=== PATIENT | male | born 1995 | race Two or more races ===

== ENCOUNTER 2024-09-30 15:32 | Inpatient (IN) | payer MEDICAID, OTHER ==
[~2024-09-30] VITALS: Ht 177.8 cm; Wt 72.2 kg
[2024-09-30 17:05] LABS: Basophils # (auto) 0.1 10 ^3/uL (0-0.2); Basophils % (auto) 0.7 % (0.0-2.0); Eosinophils # (auto) 0.3 10 ^3/uL (0-0.8); Eosinophils % (auto) 3.5 % (0.0-7.0); Hematocrit 40.5 % (41.0-53.0); Hemoglobin 14.1 g/dL (13.5-17.5); Lymphocytes # (auto) 2.7 10 ^3/uL (0.4-5.4); Lymphocytes % (auto) 28.9 % (10.0-50.0); Mean Corpuscular Hemoglobin 29.7 pg (28.0-32.0); Mean Corpuscular Hgb Conc. 34.8 g/dL (32.0-36.0); Mean Corpuscular Volume 85.4 fL (80.0-100.0); Monocytes # (auto) 0.7 10 ^3/uL (0-1.3); Monocytes % (auto) 7.4 % (0.0-12.0); Neutrophils # (auto) 5.6 10 ^3/uL (1.6-8.6); Neutrophils % (auto) 59.5 % (37.0-80.0); Nucleated Red Blood Cells % 0.1 %; Platelet Count (auto) 418 10^3/uL (140-450); Red Blood Cells 4.74 10^6/uL (4.5-5.90); Red Cell Distribution Width 12.8 % (11.8-14.3); White Blood Cell 9.4 10^3/uL (4.4-10.8)
--- NOTE | 2024-09-30 17:11 | DVH ---
Venous Doppler right lower extremity INDICATION: pain swelling TECHNIQUE: Duplex venous sonography was performed with real-time and flow sensitive images submitted for evaluation. FINDINGS: Normal phasic venous flow. Veins are fully compressible. No filling defects. IMPRESSION: 1. No evidence of deep vein thrombosis.
[2024-09-30 17:22] LABS: Alanine Aminotransferase 12 U/L (7-40); Albumin 4.6 g/dL (3.2-4.8); Alkaline Phosphatase 101 U/L (46-116); Anion Gap 5 (5-15); Aspartate Aminotransferase 10 U/L (13-40); BUN/Creatinine Ratio 16.8 (10.0-20.0); Bilirubin, Total 0.3 mg/dL (0.2-1.0); Blood Urea Nitrogen 16 mg/dL (9-23); Carbon Dioxide 30 mmol/L (20-31); Chloride 104 mmol/L (98-107); Glucose 97 mg/dL (74-106); Potassium 4.4 mmol/L (3.5-5.1); Sodium 139 mmol/L (136-145)
[2024-09-30 17:23] LABS: Total Protein 7.6 g/dL (5.7-8.2)
--- NOTE | 2024-09-30 17:29 | ED.PDOC ---
Musculoskeletal HPI Comments PMHx: Schizophrenia, depression PSHx: Denies. Social hx: Pt smokes cigarettes, drinks alcohol, and uses marijuana and meth Meds: Seroquel, Escitalopram Allergies: NKDA Vitals T: 98.1F RR: 18 HR: 82 BP: 121/78 O2: 97% on RA Huerta: HPI: Poor Historian. 29-year-old male presents to the emergency department for evaluation of right foot 3rd and 4th digit wound that he says he guided from walking too much. Patient appears homeless. Denies any other acute symptoms. Patient is neurovascularly intact in the affected extremity. The area of complaint appears infected and erythematous and tender to palpation REVIEW OF SYSTEMS: CONSTITUTIONAL: Denies acute: fever, diaphoresis, chills, generalized weakness. HEAD: Denies acute: headache, photophobia Eyes: Denies acute: Double vision, vision loss, eye pain, eye discharge. EARS: Denies acute: tinnitus, hearing loss, ear discharge, ear pain, THROAT: Denies acute: sore throat, swelling, difficulty swallowing , pain with swallowing, change in voice. NECK: Denies acute: neck pain, neck swelling, stiff neck. HEART: Denies acute : chest pain, palpitations, LUNGS: Denies acute: SOB, wheezing, cough, hemoptysis ABDOMEN: Denies acute: abdominal pain, Nausea, Vomiting, diarrhea, melena , hematemesis, hematochezia SKIN: Denies acute: rash, itchiness. EXTREMITIES: Denies acute: calf pain, numbness, tingling, weakness, denies pain in extremity. Denies acute: Low back pain. Neuro: Denies acute: focal neurological deficit, motor or sensory focal neurological deficit, tremors, seizure like activity, confusion, dizziness, change in mental status, loss of bowel or bladder function, cauda equina like symptoms. : Denies acute: dysuria, hematuria, flank pain, increase in urinary frequency. PSYCH: Denies acute: hallucination, suicidal ideation, homicidal ideation. PHYSICAL EXAM: General: no acute distress, awake and alert. Head: normocephalic, atraumatic. Neck: supple, trachea is midline, no swelling. Throat: Normal phonation. Eyes:, no erythema, no purulent discharge, no proptosis, no icterus. Heart: regular rate, regular rhythm, no significant murmur appreciated. Lungs: no apparent respiratory distress, Able to speak in full sentences. No wheezing, no rhonchi, no crackles. No stridors Clear to auscultation bilaterally. Abdomen: non tender to palpation, non distended, soft, no guarding, no rebound, + bowel sounds. Neuro: Awake, Alert, oriented to name, self, situation, follows commands GCS=15. Speech is normal. Skin: no petechia, no purpura, no cyanosis, non-pale, not jaundice. Lower extremities: --no - Pitting edema no deformity, no focal swelling, no calf TTP. Noted right foot plantar and dorsal aspect of the 4th and 5th metatarsal blisters oozing of purulent content with associated erythema and tenderness to palpation and minimal swelling. Patient is neurovascularly intact in the affected extremity. Motor and sensory are present. Pedal pulses palpable. Makes eye contact. moves all four extremities. Face: no apparent facial droop. Ambulating in the ED independently. Pedal pulses are palpable. Chief Complaint: Lower Extremity Time Seen by MD: 17:21 Primary Care Provider: Evgeny Reviewed Notes: Nurses Notes, Medications, Allergies Information Source: Patient Mode of Arrival: Ambulatory Location: Right Extremity Location: Little Toe, Toe 3, Toe 4 Timing: Weeks Severity: Mild Able to Move Extremity: Yes Bear Weight: Limited Pain: Mild Mechanism: Unknown Circumstances: Unknown Onset of Symptoms: After Trauma Symptoms: Swelling, Pain, Erythema DVT Risk Factors: NONE Last Tetanus: UTD Associated signs and symptoms: Abrasion, Other Past Medical History PAST MEDICAL HISTORY: Depression, Schizophrenia Surgical History: Denies all surgeries Family History Family History: Unknown Social History Smoker: Cigarettes Alcohol: Occasionally Drugs: Marijuana, Methamphetamine Lives In: Other (mission home) Was a procedure done? Was a procedure done?: No Differential Diagnosis EXT Differential Diagnosis: Cellulitis, Deep Vein Thrombosis, Compartment Syndrome, Fracture, Sprain, Contusion, Strain, Septic, Neurovascular injury X-Ray, Labs, Meds, VS Vital Signs Date Time Temp Pulse Resp B/P (MAP) Pulse Ox O2 Delivery O2 Flow Rate FiO2 09/30/24 18:02 95 16 97 Room Air* 0 21 09/30/24 18:01 97.9 88 16 117/66 (83) 96 97.9 09/30/24 16:22 98.1 82 18 121/78 (92) 97 Lab Test 11/25/24 16:40 Range/Units White Blood Count 9.4 4.4-10.8 10^3/uL Red Blood Count 4.74 4.5-5.90 10^6/uL Hemoglobin 14.1 13.5-17.5 g/dL Hematocrit 40.5 L 41.0-53.0 % Mean Corpuscular Volume 85.4 80.0-100.0 fL Mean Corpuscular Hemoglobin 29.7 28.0-32.0 pg Mean Corpuscular Hemoglobin Concent 34.8 32.0-36.0 g/dL Red Cell Distribution Width 12.8 11.8-14.3 % Platelet Count 418 140-450 10^3/uL Mean Platelet Volume 7.0 6.9-10.8 fL Neutrophils (%) (Auto) 59.5 37.0-80.0 % Lymphocytes (%) (Auto) 28.9 10.0-50.0 % Monocytes (%) (Auto) 7.4 0.0-12.0 % Eosinophils (%) (Auto) 3.5 0.0-7.0 % Basophils (%) (Auto) 0.7 0.0-2.0 % Neutrophils # (Auto) 5.6 1.6-8.6 10 ^3/uL Lymphocytes # (Auto) 2.7 0.4-5.4 10 ^3/uL Monocytes # (Auto) 0.7 0-1.3 10 ^3/uL Eosinophils # (Auto) 0.3 0-0.8 10 ^3/uL Basophils # (Auto) 0.1 0-0.2 10 ^3/uL Nucleated Red Blood Cells 0.1 % Erythrocyte Sedimentation Rate 48 H 0-20 mm/hr Sodium Level 139 136-145 mmol/L Potassium Level 4.4 3.5-5.1 mmol/L Chloride Level 104 98-107 mmol/L Carbon Dioxide Level 30 20-31 mmol/L Anion Gap 5 5-15 Blood Urea Nitrogen 16 9-23 mg/dL Creatinine 0.95 0.700-1.30 mg/dL Glomerular Filtration Rate Calc 110 >90 mL/min BUN/Creatinine Ratio 16.8 10.0-20.0 Serum Glucose 97 74-106 mg/dL Lactic Acid Level 1.0 0.4-2.0 mmol/L Calcium Level 10.0 8.7-10.4 mg/dL Total Bilirubin 0.3 0.2-1.0 mg/dL Aspartate Amino Transferase (AST) 10 L 13-40 U/L Alanine Aminotransferase (ALT) 12 7-40 U/L Alkaline Phosphatase 101 46-116 U/L Troponin I High Sensitivity < 3 L </=54 ng/L C-Reactive Protein High Sensitivity 2.62 H <1.0 mg/dL B-Type Natriuretic Peptide 6.81 0-100 pg/mL Total Protein 7.6 5.7-8.2 g/dL Albumin 4.6 3.2-4.8 g/dL Current Medications Medications (Trade) Dose Ordered Sig/Arti Route Start Time Stop Time Status Last Admin Clindamycin Phosphate 50 ml @ 50 mls/hr ONCE ONCE IV 09/30/24 17:45 09/30/24 18:44 DC 09/30/24 18:13 [place] [id number] Ph: [phone] DIAGNOSTIC IMAGING Diagnostic Imaging Report : [id number] Signed PATIENT: GATO HUERTA ACCT: [id number] UNIT: [id number] : 1995 LOC: ER ROOM / BED: / AGE / SEX: 29 / M ADM STATUS: REG ER SERVICE 173 ORDERING PHYSICIAN: JOSE TITUS DO PROCEDURE(s): RFOOT - R FOOT 3 VIEW XRAY REASON: wound/ infection ORDER NUMBER(s): [id number], ACCESSION NUMBER(s): [id number] CLINICAL INDICATION: wound/ infection TECHNIQUE: 3 radiographic views of the right foot were obtained. Comparison: None FINDINGS/IMPRESSION: There is no evidence of acute fracture or dislocation. No erosive bony changes to suggest osteomyelitis. If there is concern for osteomyelitis, MRI should be considered for further evaluation. The visualized joint space is well maintained. The alignment is anatomical. Punctate densities within the soft tissues of the distal which may be external to the patient. Recommend clinical correlation. Mild soft tissue edema over the dorsum of the foot. ATED BY: BRITTANY GARCIA DO DICTATED DATE/TIME: 09/30/241803 SIGNED BY: BRITTANY GARCIA DO SIGNED DATE/TIME: 09/30/241803 CC: [place] [id number] Ph: [phone] DIAGNOSTIC IMAGING Diagnostic Imaging Report : [id number] Signed PATIENT: GATO HUERTA ACCT: [id number] UNIT: [id number] : 1995 LOC: ER ROOM / BED: / AGE / SEX: 29 / M ADM STATUS: REG ER SERVICE 26 ORDERING PHYSICIAN: JOSE TITUS DO PROCEDURE(s): RLDVT - RT Lower DVT REASON: pain swelling ORDER NUMBER(s): [id number], ACCESSION NUMBER(s): [id number] Venous Doppler right lower extremity INDICATION: pain swelling TECHNIQUE: Duplex venous sonography was performed with real-time and flow sensitive images submitted for evaluation. FINDINGS: Normal phasic venous flow. Veins are fully compressible. No filling defects. IMPRESSION: 1. No evidence of deep vein thrombosis. ATED BY: DARIUS KATE MD DICTATED DATE/TIME: 09/30/241708 SIGNED BY: DARIUS KATE MD SIGNED DATE/TIME: 09/30/241708 CC: Time of 1ST Reevaluation: 17:51 Reevaluation 1ST: Unchanged Patient Education/Counseling: Diagnosis, Treatment Family Education/Counseling: No Family Present Comments Patient presented with the above HPI.---foot wound---workup was initiated. patient was found with the above mentioned diagnosis. Patient was given: Antibiotics and fluids Patient ED course and VS have been stabilized. Patient has been reassessed in the ED and remained in a stable condition. Pertinent incidental findings were discussed with the patient and/or family. Patient/family voices understanding and is agreeable with plan. Patient has been observed in the ED adequate length of time to insure improvement/stability. patient was admitted to the medicine team for further evaluation and treatment of their presentation. All the reports of any imaging studies that were ordered by myself were reviewed by myself. Departure 1 Departure Time of Disposition: 18:39 Impression: Primary Impression: Foot infection Additional Impression: Cellulitis Disposition: ADMITTED INPATIENT Condition: Stable Discharged With: Self Critical Care Note Critical Care Time?: No I personally scribed for JOSE TITUS DO ([email or web address]) on 09/30/24 at 17:28. Electronically submitted by Christine Carlson ([facility]). I personally scribed for JOSE TITUS DO ([email or web address]) on 09/30/24 at 18:04. Electronically submitted by Christine Carlson ([facility]). I personally scribed for JOSE TITUS DO ([email or web address]) on 09/30/24 at 19:23. Electronically submitted by Christine Carlson ([facility]). JOSE TITUS DO Sep 30, 2024 17:28
[2024-09-30 17:30] LABS: CRP High Sensitivity 2.62 mg/dL (<1.0)
[2024-09-30 17:38] LABS: Erythrocyte Sedimentation Rate 48 mm/hr (0-20)
[2024-09-30 18:02] VITALS: PULSE 95; RESP 16; O2SAT 97
--- NOTE | 2024-09-30 18:07 | DVH ---
CLINICAL INDICATION: wound/ infection TECHNIQUE: 3 radiographic views of the right foot were obtained. Comparison: None FINDINGS/IMPRESSION: There is no evidence of acute fracture or dislocation. No erosive bony changes to suggest osteomyelit is. If there is concern for osteomyelitis, MRI should be considered for further evaluation. The visualized joint space is well maintained. The alignment is anatomical. Punctate densities within the soft tissues of the distal which may be external to the patient. Recom mend clinical correlation. Mild soft tissue edema over the dorsum of the foot.
[2024-09-30] MEDS: CLINDAMYCIN 900MG IV 50 ML IV ONE (18:13)
[2024-09-30] MEDS ORDERED: ACETAMINOPHEN 325 MG TAB PO PRN (21:30)
[2024-09-30] MEDS ORDERED: TEMAZEPAM 15 MG CAP PO PRN (21:30)
[2024-09-30] MEDS ORDERED: ONDANSETRON HCL 4 MG/2 ML VIAL IV PRN (21:30)
[2024-09-30] MEDS ORDERED: HYDROcodone-ACET 5/325MG TAB PO PRN (21:30)
[2024-10-01 00:22] VITALS: BP 121/81; PULSE 72; RESP 18; TEMP 98.4; O2SAT 97
[2024-10-01] MEDS: levETIRAcetam 500 MG TAB PO SCH (03:02)
[2024-10-01] MEDS: QUEtiapine FUMARATE 100 MG TAB PO SCH (03:02)
[2024-10-01] MEDS: CLINDAMYCIN 600MG IV 50 ML IV SCH (05:33)
[2024-10-01 05:49] VITALS: BP 106/62; PULSE 89; RESP 16; TEMP 97.6; O2SAT 96
--- NOTE | 2024-10-01 05:53 | DVHHP2 ---
History of Present Illness Reason for Visit: Right foot swelling History of Present Illness 29-year-old male presents for evaluation of right foot swelling. Patient reports noticing swelling to his right foot two days ago. He states having tenderness with mild warmth. Denies trauma to the area. No other acute complaints reported. Past Medical History Schizophrenia Past Surgical History Denies Family History Noncontributory Smoke: <1 pack per day ALCOHOL: occassional Drugs: Marijuana, Other (Methamphetamine) Review of Systems Review of Systems Review of systems are currently negative otherwise addressed in HPI. Allergies: Coded Allergies: No Known Drug Allergy (Verified Allergy, Unknown, 10/01/24) Medications Current Medications Medications Dose Ordered Sig/Arti Route Start Time Stop Time Status Last Admin Dose Admin Ceftriaxone Sodium 50 ml @ 100 mls/hr DAILY@09 IV 10/01/24 09:00 Clindamycin Phosphate 50 ml @ 50 mls/hr Q8HR IV 10/01/24 06:00 10/01/24 05:33 50 MLS/HR Quetiapine Fumarate 100 mg BID PO 09/30/24 22:00 10/01/24 03:02 100 MG Levetiracetam 500 mg BID PO 09/30/24 22:00 10/01/24 03:02 500 MG Acetaminophen/ Hydrocodone Bitart 1 tab Q4HP PRN PO 09/30/24 21:30 Temazepam 15 mg QHSP PRN PO 09/30/24 21:30 Ondansetron HCl 4 mg Q4HP PRN IV 09/30/24 21:30 Acetaminophen 650 mg Q6HP PRN PO 09/30/24 21:30 Exam Vital Signs Vital Signs Date Time Temp Pulse Resp B/P (MAP) Pulse Ox O2 Delivery O2 Flow Rate FiO2 10/01/24 00:53 Room Air* 0 21 10/01/24 00:22 98.4 72 18 121/81 (94) 97 98.4 Exam Gen: 29-year-old male in no apparent distress Skin: Warm, dry, normal color and texture, no rash. HEENT: Normocephalic atraumatic, mucous membranes moist and pink. Neck: Cervical and supraclavicular nodes normal without enlargement, trachea is midline, thyroid gland is normal without masses. Pulmonary: Clear to auscultation and percussion bilaterally. Cardiac: Regular rate and rhythm. No murmur Abdomen: Soft, nontender, nondistended, bowel sounds present all 4 quadrants, no guarding, no rigidity, no organomegaly. Extremities: No cyanosis, clubbing, right foot cellulitis Neuro: Cranial nerves II through XII grossly intact, normal affect and speech, no focal motor deficits. Labs/Xrays ORDERING PHYSICIAN: JOSE TITUS DO PROCEDURE(s): RFOOT - R FOOT 3 VIEW XRAY REASON: wound/ infection ORDER NUMBER(s): [id number], ACCESSION NUMBER(s): [id number] CLINICAL INDICATION: wound/ infection TECHNIQUE: 3 radiographic views of the right foot were obtained. Comparison: None FINDINGS/IMPRESSION: There is no evidence of acute fracture or dislocation. No erosive bony changes to suggest osteomyelitis. If there is concern for osteomyelitis, MRI should be considered for further evaluation. The visualized joint space is well maintained. The alignment is anatomical. Punctate densities within the soft tissues of the distal which may be external to the patient. Recommend clinical correlation. Mild soft tissue edema over the dorsum of the foot. Labs Test 09/30/24 16:40 Range/Units White Blood Count 9.4 4.4-10.8 10^3/uL Red Blood Count 4.74 4.5-5.90 10^6/uL Hemoglobin 14.1 13.5-17.5 g/dL Hematocrit 40.5 L 41.0-53.0 % Mean Corpuscular Volume 85.4 80.0-100.0 fL Mean Corpuscular Hemoglobin 29.7 28.0-32.0 pg Mean Corpuscular Hemoglobin Concent 34.8 32.0-36.0 g/dL Red Cell Distribution Width 12.8 11.8-14.3 % Platelet Count 418 140-450 10^3/uL Mean Platelet Volume 7.0 6.9-10.8 fL Neutrophils (%) (Auto) 59.5 37.0-80.0 % Lymphocytes (%) (Auto) 28.9 10.0-50.0 % Monocytes (%) (Auto) 7.4 0.0-12.0 % Eosinophils (%) (Auto) 3.5 0.0-7.0 % Basophils (%) (Auto) 0.7 0.0-2.0 % Neutrophils # (Auto) 5.6 1.6-8.6 10 ^3/uL Lymphocytes # (Auto) 2.7 0.4-5.4 10 ^3/uL Monocytes # (Auto) 0.7 0-1.3 10 ^3/uL Eosinophils # (Auto) 0.3 0-0.8 10 ^3/uL Basophils # (Auto) 0.1 0-0.2 10 ^3/uL Nucleated Red Blood Cells 0.1 % Erythrocyte Sedimentation Rate 48 H 0-20 mm/hr Sodium Level 139 136-145 mmol/L Potassium Level 4.4 3.5-5.1 mmol/L Chloride Level 104 98-107 mmol/L Carbon Dioxide Level 30 20-31 mmol/L Anion Gap 5 5-15 Blood Urea Nitrogen 16 9-23 mg/dL Creatinine 0.95 0.700-1.30 mg/dL Glomerular Filtration Rate Calc 110 >90 mL/min BUN/Creatinine Ratio 16.8 10.0-20.0 Serum Glucose 97 74-106 mg/dL Lactic Acid Level 1.0 0.4-2.0 mmol/L Calcium Level 10.0 8.7-10.4 mg/dL Total Bilirubin 0.3 0.2-1.0 mg/dL Aspartate Amino Transferase (AST) 10 L 13-40 U/L Alanine Aminotransferase (ALT) 12 7-40 U/L Alkaline Phosphatase 101 46-116 U/L Troponin I High Sensitivity < 3 L </=54 ng/L C-Reactive Protein High Sensitivity 2.62 H <1.0 mg/dL B-Type Natriuretic Peptide 6.81 0-100 pg/mL Total Protein 7.6 5.7-8.2 g/dL Albumin 4.6 3.2-4.8 g/dL Assessment/Plan Assessment/Plan Assessment Right foot cellulitis History of schizophrenia Plan Admit the patient to Med surge to the hospitalist Rocephin/clindamycin Blood culture pending Resume home medications Continue treatment per orders. Plan discussed with: Patient My Orders Orders - JORGE PINEDA AGACNP Procedure Category Date Status Time Ceftriaxone 1gm/50ml PHA 10/01/24 In Process D5w (Rocephin) 09:00 Quetiapine Fumarate PHA 09/30/24 In Process Tablet (Seroquel Tab 22:00 Levetiracetam Tablet PHA 09/30/24 In Process (Keppra Tablet) 22:00 Basic Metabolic Panel LAB 10/01/24 Logged 04:00 Admit ADMIT 09/30/24 Transmitted 21:16 Hydrocodone-Acet PHA 09/30/24 In Process 5/325mg Tab ([place] 21:30 Temazepam (Restoril) PHA 09/30/24 In Process 21:30 Ondansetron Hcl PHA 09/30/24 In Process (Zofran) 21:30 Complete Blood Count LAB 10/01/24 Logged 04:00 Condition: Stable MARIELLA 09/30/24 In Process 21:16 Acetaminophen Tablet PHA 09/30/24 In Process (Tylenol Tablet) 21:30 Bedrest With Bathroom MARIELLA 09/30/24 In Process Privileg 21:16 Regular Diet DIET 10/01/24 Transmitted Breakfast Clindamycin 600mg Iv PHA 10/01/24 In Process (Cleocin Iv) 06:00 Date of Service: Sep 30, 2024 Billing Provider: JORGE PINEDA Common Visit Codes: [id number] INP/OBS CARE (MOD) JORGE PINEDA Oct 01, 2024 05:53
[2024-10-01 07:13] LABS: Basophils # (auto) 0 10 ^3/uL (0-0.2); Basophils % (auto) 0.6 % (0.0-2.0); Eosinophils # (auto) 0.3 10 ^3/uL (0-0.8); Eosinophils % (auto) 3.9 % (0.0-7.0); Hematocrit 37.9 % (41.0-53.0); Hemoglobin 13.1 g/dL (13.5-17.5); Lymphocytes # (auto) 1.7 10 ^3/uL (0.4-5.4); Lymphocytes % (auto) 25.6 % (10.0-50.0); Mean Corpuscular Hemoglobin 29.3 pg (28.0-32.0); Mean Corpuscular Hgb Conc. 34.6 g/dL (32.0-36.0); Mean Corpuscular Volume 84.6 fL (80.0-100.0); Monocytes # (auto) 0.5 10 ^3/uL (0-1.3); Monocytes % (auto) 7.2 % (0.0-12.0); Neutrophils % (auto) 62.7 % (37.0-80.0); Platelet Count (auto) 335 10^3/uL (140-450); Red Blood Cells 4.48 10^6/uL (4.5-5.90); White Blood Cell 6.5 10^3/uL (4.4-10.8)
[2024-10-01 07:27] LABS: Anion Gap 8 (5-15); Calcium 9.6 mg/dL (8.7-10.4); Carbon Dioxide 24 mmol/L (20-31); Chloride 109 mmol/L (98-107); Sodium 141 mmol/L (136-145)
[2024-10-01 07:33] LABS: BUN/Creatinine Ratio 13.5 (10.0-20.0); Blood Urea Nitrogen 10 mg/dL (9-23); Glucose 103 mg/dL (74-106)
[2024-10-01 07:41] VITALS: BP 96/52; PULSE 68; RESP 16; TEMP 97.6; O2SAT 91
[2024-10-01 07:47] VITALS: BP 96/52; PULSE 64; PULSE 68; RESP 16; TEMP 97.6; O2SAT 91; O2SAT 96
[2024-10-01] MEDS: cefTRIAXone 1GM/50ML D5W 50 ML IV SCH (09:00)
--- NOTE | 2024-10-01 10:57 | DVHPNRES ---
Progress Note Date Seen: Oct 01, 2024 Resident Creating Document: MYRANDA ROBLES RESIDENT Has the PT tested + for MRSA If YES, has PT been informed?: No Medical Necessity Reason Pt with a Central, PICC or Fol: No Subjective Review of Systems This is a 29-year-old male with a pmhx of schizophrenia and polysubstance abuse who presented to the ED with the complaints of right foot pain for the past 2 weeks. Patient is homeless and has been sleeping wherever he could until recently when he got placed in a [facility] house. Patient reported noticing swelling of his right foot two weeks ago. He denied trauma to the foot or insect bite. He however, noted associated symptoms like fever, nausea and vomiting. Past Medical History:Schizophrenia, Marijuana, Other (Methamphetamine) Past Surgical History: None Family History:Noncontributory Smoke: <1 pack per day.ALCOHOL: occasional, currently unemployed Constitutional: mild fever and chills HEENT: Denies headache, ear pain, ear discharges, conjunctivitis, nasal discharge throat pain Cardiovascular: Denies chest pain, palpitation, orthopnea, PND, or pedal edema Respiratory: Denies shortness of breath, cough cough, sputum production, hemoptysis, GI: Denies abdominal pain, nausea, vomiting, diarrhea, hematemesis, hematochezia, : Denies frequency, urgency, hematuria, Endocrine: Denies unintentional weight gain or weight loss, feeling of hot flashes, Jim: Denies easy bruising, bleeding disorders, epistaxis Musculoskeletal: right food pain and tenderness, red, swelling; left foot is fine Psych: No evidence of depression, brit, suicidal ideation Objective vital signs Vital Sign Date Time Temp Pulse Resp B/P (MAP) Pulse Ox O2 Delivery O2 Flow Rate FiO2 10/01/24 07:41 97.6 68 16 96/52 (67) 91 97.6 10/01/24 00:53 Room Air* 0 21 Total Intake and Output 09/30/24 09/30/24 10/01/24 15:00 23:00 07:00 Intake Total 50 ml 50 ml Balance 50 ml 50 ml medications Current Medications Medications Dose Ordered Sig/Arti Route Start Time Stop Time Status Last Admin Dose Admin Ceftriaxone Sodium 50 ml @ 100 mls/hr DAILY@09 IV 10/01/24 09:00 10/01/24 09:00 100 MLS/HR Clindamycin Phosphate 50 ml @ 50 mls/hr Q8HR IV 10/01/24 06:00 10/01/24 05:33 50 MLS/HR Quetiapine Fumarate 100 mg BID PO 09/30/24 22:00 10/01/24 09:07 100 MG Levetiracetam 500 mg BID PO 09/30/24 22:00 10/01/24 09:06 500 MG Acetaminophen/ Hydrocodone Bitart 1 tab Q4HP PRN PO 09/30/24 21:30 Temazepam 15 mg QHSP PRN PO 09/30/24 21:30 Ondansetron HCl 4 mg Q4HP PRN IV 09/30/24 21:30 Acetaminophen 650 mg Q6HP PRN PO 09/30/24 21:30 Examination General examination- very sleepying HEENT: PEERLA, no acute nasal discharge Chest: S1-S2 audible, rate and rhythm regular, no murmur Lung: CTAB, no wheeze or rhonchi Abdomen: Nondistend, BS+, nontenderness, no organomegaly Musculoskeletal: no acute joint swelling or tenderness Lower extremity:right foot edema, open wound, tender, discharges; Leg foot intact Neurological: cranial nerves intact, no acute dysarthria or dysphagia; Legs pulses present, sensation intact foot Psychiatry-- Normal mood and affect Skin- no acute rash or purpura Examination: NEURO:Normal laboratory and microbiology Laboratory Tests 10/01/24 06:21 Test 10/01/24 06:21 Range/Units Serum Glucose 103 74-106 mg/dL Problem List/Assessment/Plan Problem List/Assessment/Plan Right foot purulent cellulitis --> CT: No definite acute fracture or focal osteopenia or cortical destruction to suggest osteomyelitis. -->Vancomycin per pharmacy --> monitor for any worsening --> Currie prn --> Wound care count Schizophrenia --> quetiapine Polysubstance use --> Marijuana --> Methamphetamine --> Social service consult Code status: Full Goal of care discussed for more than 30 minutes Case and plan discussed with Dr. Driver Plan discussed with: Patient My Orders My Orders Orders - MYRANDA ROBLES Procedure Category Date Status Time Drug Screen LAB 10/01/24 Logged 10:50 Date of Service: Oct 01, 2024 Billing Provider: DARYL MONTES MD Common Visit Codes: [id number] INP/OBS CARE(HIGH) MYRANDA ROBLES RESIDENT Oct 01, 2024 10:57 DARYL MONTES MD Oct 07, 2024 00:13
[2024-10-01 12:06] VITALS: BP 107/64; PULSE 77; RESP 20; TEMP 97.7; O2SAT 98
[2024-10-01] MEDS ORDERED: QUET100T47 PO (15:02)
[2024-10-01] MEDS ORDERED: ESCI1TAB36 PO (15:02)
--- NOTE | 2024-10-01 15:10 | DVH ---
EXAMINATION: CT CT R FOOT WO CONTRAST INDICATION: rule out ostemyelitis COMPARISON: None TECHNIQUE: CT of the right foot was performed without contrast. Volume transverse images were obtaine d reconstructed in multiple planes using bone and soft tissue algorithms. FINDINGS: There is motion artifact limiting evaluation of the right foot particularly the metatarsals. Normal m ineralization and alignment. The joint spaces are preserved. There is no definite acute fracture. No definite focal osteopenia or cortical destruction to suggest osteomyelitis. Well corticated osseous d ensities project inferior to the distal tip of the fibula as well as adjacent to the distal tip of th e medial malleolus. There is subcutaneous edema within the visualized right ankle extending into the right foot. The muscle bundles of the right foot are intact. No soft tissue gas or well-formed fluid collection. The tendons and ligaments are grossly intact although not optimally evaluated by CT. IMPRESSION: 1. Motion artifact limits evaluation of the right foot particularly of the metatarsals. 2. No definite acute fracture or focal osteopenia or cortical destruction to suggest osteomyelitis. 3. Subcutaneous edema in the visualized right ankle extending into the right foot. No well-formed fl uid collection or soft tissue gas. 4. Well corticated osseous densities inferior to the distal tip of the fibula as well as adjacent to the distal tip of the medial malleolus which may be sequelae of remote trauma
[2024-10-01] MEDS ORDERED: VANCOMYCIN PER PHARMACY 0 MG IV SCH (15:15)
[2024-10-01] MEDS: VANCOMYCIN 1.5GM/300ML 300 ML IV ONE (15:30)
[2024-10-01 17:06] VITALS: BP 100/49; PULSE 64; RESP 18; TEMP 97.9; O2SAT 97
[2024-10-01] MEDS: VANCOMYCIN 1GM/200ML PREMIX 200 ML IV SCH (22:58)
[2024-10-02] VITALS (7 sets, daily range): BP systolic 93–124; BP diastolic 51–92; PULSE 61–70; RESP 16–20; TEMP 97.1–98.4; O2SAT 96–98
--- NOTE | 2024-10-02 12:57 | DVHINCON2 ---
Date Seen: Oct 02, 2024 Reason for Consultation Right foot wound History of Present Illness 29-year-old male presents for evaluation of right foot swelling. Patient reports noticing swelling to his right foot two days ago. He states having tenderness with mild warmth. Denies trauma to the area. No other acute com plaints reported. Past Medical History See H&P Past Surgical History See H&P Family History: Patient reports no known family medical history. Allergies: Coded Allergies: Cephalexin (Verified Allergy, Intermediate, 10/01/24) Home Meds Reported Medications Quetiapine Fumerate (QUETIAPINE FUMARATE) 100 Mg Tab, PO 10/01/24 Escitalopram Oxalate (ESCITALOPRAM OXALATE) 10 Mg Tab, 1 TAB PO DAILY 10/01/24 Current Medications Current Medications Medications (Trade) Dose Ordered Sig/Arti Route PRN Reason Start Time Stop Time Status Last Admin Vancomycin HCl 0 ml @ 0 mls/hr UD IV 10/01/24 15:15 Vancomycin HCl 200 ml @ 200 mls/hr Q8H IV 10/02/24 00:00 10/02/24 09:03 Vital Signs Vital Signs Date Time Temp Pulse Resp B/P (MAP) Pulse Ox O2 Delivery O2 Flow Rate FiO2 10/02/24 12:51 98.4 68 124/92 (103) 97 98.4 10/02/24 08:24 16 10/02/24 08:00 Room Air* 0 21 Physical Exam DERMATOLOGIC EXAM: - Skin is dry and cool to the touch dry bilaterally. - Nails 1-5 of the bilateral foot are thickened, discolored, dystrophic, and tender to palpate with subungual debris - Hair loss noted to bilateral feet - superficial scabs and ulcerations to the right foot with erythema VASCULAR EXAM: - DP and PT pulses are palpable bilaterally. - P[place]ER [place] is brisk to all digits. - Feet are cool to touch compared to lower legs bilaterally. NEUROLOGIC EXAM: - Normal light touch sensation to the superficial peroneal, deep peroneal, sural, saphenous, and tibial nerve branches. - Protective sensation is diminished as tested with a 5.07 10g [place] bilaterally. MUSCULOSKELETAL EXAM: - No gross deformities - Muscle strength is 5/5 and active motion is pain-free and symmetrical bilaterally - No pain or crepitation with passive range of motion bilaterally to all major pedal joints Labs/Diagnostic Data Labs Test 10/02/24 06:00 10/01/24 06:21 09/30/24 16:40 Range/Units Creatinine 0.77 0.700-1.30 mg/dL Glomerular Filtration Rate Calc 124 >90 mL/min White Blood Count 6.5 # 4.4-10.8 10^3/uL Red Blood Count 4.48 L 4.5-5.90 10^6/uL Hemoglobin 13.1 L 13.5-17.5 g/dL Hematocrit 37.9 L 41.0-53.0 % Mean Corpuscular Volume 84.6 80.0-100.0 fL Mean Corpuscular Hemoglobin 29.3 28.0-32.0 pg Mean Corpuscular Hemoglobin Concent 34.6 32.0-36.0 g/dL Red Cell Distribution Width 13.0 11.8-14.3 % Platelet Count 335 140-450 10^3/uL Mean Platelet Volume 7.0 6.9-10.8 fL Neutrophils (%) (Auto) 62.7 37.0-80.0 % Lymphocytes (%) (Auto) 25.6 10.0-50.0 % Monocytes (%) (Auto) 7.2 0.0-12.0 % Eosinophils (%) (Auto) 3.9 0.0-7.0 % Basophils (%) (Auto) 0.6 0.0-2.0 % Neutrophils # (Auto) 4.0 1.6-8.6 10 ^3/uL Lymphocytes # (Auto) 1.7 0.4-5.4 10 ^3/uL Monocytes # (Auto) 0.5 0-1.3 10 ^3/uL Eosinophils # (Auto) 0.3 0-0.8 10 ^3/uL Basophils # (Auto) 0 0-0.2 10 ^3/uL Nucleated Red Blood Cells 0.0 % Sodium Level 141 136-145 mmol/L Potassium Level 4.0 3.5-5.1 mmol/L Chloride Level 109 H 98-107 mmol/L Carbon Dioxide Level 24 20-31 mmol/L Anion Gap 8 5-15 Blood Urea Nitrogen 10 9-23 mg/dL BUN/Creatinine Ratio 13.5 10.0-20.0 Serum Glucose 103 74-106 mg/dL Calcium Level 9.6 8.7-10.4 mg/dL Erythrocyte Sedimentation Rate 48 H 0-20 mm/hr Lactic Acid Level 1.0 0.4-2.0 mmol/L Total Bilirubin 0.3 0.2-1.0 mg/dL Aspartate Amino Transferase (AST) 10 L 13-40 U/L Alanine Aminotransferase (ALT) 12 7-40 U/L Alkaline Phosphatase 101 46-116 U/L Troponin I High Sensitivity < 3 L </=54 ng/L C-Reactive Protein High Sensitivity 2.62 H <1.0 mg/dL B-Type Natriuretic Peptide 6.81 0-100 pg/mL Total Protein 7.6 5.7-8.2 g/dL Albumin 4.6 3.2-4.8 g/dL Problems(with codes): (1) Cellulitis (2) Foot infection Plan/Recommendation ASSESSMENT: Patient is a 29 year old who was seen on the floor for a worsening right foot wound PLAN: - The patients chart was reviewed, clinical findings were discussed with the patient, the etiologies of the conditions were discussed in detail, and a treatment plan was agreed to at this time, with both oral and written instructions provided. - reviewed x-ray and CT which did not show any abscess or soft tissue emphysema - appears to be consistent with superficial cellulitis and blistering - recommend patient gets admitted for IV antibiotic treatment - no surgical intervention required at this point - dress with Betadine gauze and Kerlix - have it changed every day - can follow up with me as an outpatient once discharged All questions were answered and concerns addressed to the patient's satisfaction. The patient was given the phone number to the clinic and was told how to make contact with the clinic should any concerns or questions arise. Patient understands that if any questions or concerns arise prior to the next appointment, we should be contacted immediately. FOLLOW-UP: Patient will follow up with me in 1 week for continued wound care Plan discussed with: Patient Date of Service: Oct 02, 2024 Billing Provider: CHEPE PLUNKETT DPM Common Visit Codes: [id number] INP/OBS CARE (MOD) CHEPE PLUNKETT DPM Oct 02, 2024 12:57
[2024-10-02] MEDS ORDERED: VANCOMYCIN 1.25GM/250ML 250 ML IV SCH (17:00)
[2024-10-02] MEDS ORDERED: BACDST PO (17:01)
--- NOTE | 2024-10-02 23:08 | DVHDSRES ---
Discharge Summary Date of Admission Resident Creating Document: MYRANDA ROBLES RESIDENT Sep 30, 2024 at 21:16 Date of Discharge: Oct 02, 2024 Labs/Diagnostic Data: Laboratory Results Test 10/02/24 14:51 10/02/24 06:00 10/01/24 06:21 09/30/24 16:40 Vancomycin Level Trough 8.6 ug/mL (5-10) Creatinine 0.77 mg/dL (0.700-1.30) Glomerular Filtration Rate Calc 124 mL/min (>90) White Blood Count 6.5 10^3/uL (4.4-10.8) Red Blood Count 4.48 10^6/uL (4.5-5.90) Hemoglobin 13.1 g/dL (13.5-17.5) Hematocrit 37.9 % (41.0-53.0) Mean Corpuscular Volume 84.6 fL (80.0-100.0) Mean Corpuscular Hemoglobin 29.3 pg (28.0-32.0) Mean Corpuscular Hemoglobin Concent 34.6 g/dL (32.0-36.0) Red Cell Distribution Width 13.0 % (11.8-14.3) Platelet Count 335 10^3/uL (140-450) Mean Platelet Volume 7.0 fL (6.9-10.8) Neutrophils (%) (Auto) 62.7 % (37.0-80.0) Lymphocytes (%) (Auto) 25.6 % (10.0-50.0) Monocytes (%) (Auto) 7.2 % (0.0-12.0) Eosinophils (%) (Auto) 3.9 % (0.0-7.0) Basophils (%) (Auto) 0.6 % (0.0-2.0) Neutrophils # (Auto) 4.0 10 ^3/uL (1.6-8.6) Lymphocytes # (Auto) 1.7 10 ^3/uL (0.4-5.4) Monocytes # (Auto) 0.5 10 ^3/uL (0-1.3) Eosinophils # (Auto) 0.3 10 ^3/uL (0-0.8) Basophils # (Auto) 0 10 ^3/uL (0-0.2) Nucleated Red Blood Cells 0.0 % Sodium Level 141 mmol/L (136-145) Potassium Level 4.0 mmol/L (3.5-5.1) Chloride Level 109 mmol/L (98-107) Carbon Dioxide Level 24 mmol/L (20-31) Anion Gap 8 (5-15) Blood Urea Nitrogen 10 mg/dL (9-23) BUN/Creatinine Ratio 13.5 (10.0-20.0) Serum Glucose 103 mg/dL (74-106) Calcium Level 9.6 mg/dL (8.7-10.4) Erythrocyte Sedimentation Rate 48 mm/hr (0-20) Lactic Acid Level 1.0 mmol/L (0.4-2.0) Total Bilirubin 0.3 mg/dL (0.2-1.0) Aspartate Amino Transferase (AST) 10 U/L (13-40) Alanine Aminotransferase (ALT) 12 U/L (7-40) Alkaline Phosphatase 101 U/L (46-116) Troponin I High Sensitivity < 3 ng/L (</=54) C-Reactive Protein High Sensitivity 2.62 mg/dL (<1.0) B-Type Natriuretic Peptide 6.81 pg/mL (0-100) Total Protein 7.6 g/dL (5.7-8.2) Albumin 4.6 g/dL (3.2-4.8) Other Laboratory Tests 10/02/24 06:00 10/01/24 06:21 Brief Hx & Hospital Course: This 29-year-old male with a pmhx of schizophrenia and polysubstance abuse presented to the ED with right foot open discharging wound for the past 2 weeks. He denied trauma to the foot or insect bite. He however,reported associated symptoms like fever, nausea and vomiting. Vitals and lab values were grossly unremarkable. Patient does not have DM or immunocompromised. He was managed on Vancomycin and improved. While on admission, he was also seen by the shoe salesman for right foot evaluation. per the shoe salesman, patient is advised to dress the wound with Betadine gauze and Kerlix daily and follow with the shoe salesman in a week for wound evaluation. Examination General examination- wild awake. very cooperative and communicating well. HEENT: PEER[place], no acute nasal discharge Chest: S1-S2 audible, rate and rhythm regular, no murmur Lung: CTAB, no wheeze or rhonchi Abdomen: Nondistend, BS+, nontenderness, no organomegaly Musculoskeletal: no acute joint swelling or tenderness Lower extremity: right foot covered in clean white gauze, No discharge noted; swelling is decrease; Left foot intact Neurological: cranial nerves intact, no acute dysarthria or dysphagia; pedal pulses are present and strong, sensation intact Psychiatry-- Normal mood and affect Skin- no acute rash or purpura Examination: NEURO:Normal Overall, patient is stable for discharge. Will send him home ( [facility]) with Bactrim for 5-7 days until he see the shoe salesman. Consults/Reason for consult Reason for Consultation Right foot wound Operations or Procedures ORDERING PHYSICIAN: JOSE TITUS DO PROCEDURE(s): RLDVT - RT Lower DVT REASON: pain swelling ORDER NUMBER(s): [id number], ACCESSION NUMBER(s): [id number] Venous Doppler right lower extremity INDICATION: pain swelling TECHNIQUE: Duplex venous sonography was performed with real-time and flow sensitive images submitted for evaluation. FINDINGS: Normal phasic venous flow. Veins are fully compressible. No filling defects. IMPRESSION: 1. No evidence of deep vein thrombosis. ATED BY: DARIUS KATE MD DICTATED DATE/TIME: 09/30/24 170 ORDERING PHYSICIAN: JOSE TITUS DO PROCEDURE(s): RFOOT - R FOOT 3 VIEW XRAY REASON: wound/ infection ORDER NUMBER(s): [id number], ACCESSION NUMBER(s): [id number] ORDERING PHYSICIAN: MYRANDA ROBLES PROCEDURE(s): RFTCT - CT R FOOT WO CONTRAST REASON: rule out ostemyelitis ORDER NUMBER(s): [id number], ACCESSION NUMBER(s): [id number] EXAMINATION: CT CT R FOOT WO CONTRAST INDICATION: rule out ostemyelitis COMPARISON: None TECHNIQUE: CT of the right foot was performed without contrast. Volume transverse images were obtained reconstructed in multiple planes using bone and soft tissue algorithms. FINDINGS: There is motion artifact limiting evaluation of the right foot particularly the metatarsals. Normal mineralization and alignment. The joint spaces are preserved. There is no definite acute fracture. No definite focal osteopenia or cortical destruction to suggest osteomyelitis. Well corticated osseous densities project inferior to the distal tip of the fibula as well as adjacent to the distal tip of the medial malleolus. There is subcutaneous edema within the visualized right ankle extending into the right foot. The muscle bundles of the right foot are intact. No soft tissue gas or well-formed fluid collection. The tendons and ligaments are grossly intact although not optimally evaluated by CT. IMPRESSION: 1. Motion artifact limits evaluation of the right foot particularly of the metatarsals. 2. No definite acute fracture or focal osteopenia or cortical destruction to suggest osteomyelitis. 3. Subcutaneous edema in the visualized right ankle extending into the right foot. No well-formed fluid collection or soft tissue gas. 4. Well corticated osseous densities inferior to the distal tip of the fibula as well as adjacent to the distal tip of the medial malleolus which may be sequelae of remote trauma ATED BY: SANGEETHA DE LOS SANTOS MD DICTATED DATE/TIME: 10/01/24 1640 CLINICAL INDICATION: wound/ infection TECHNIQUE: 3 radiographic views of the right foot were obtained. Comparison: None FINDINGS/IMPRESSION: There is no evidence of acute fracture or dislocation. No erosive bony changes to suggest osteomyelitis. If there is concern for osteomyelitis, MRI should be considered for further evaluation. The visualized joint space is well maintained. The alignment is anatomical. Punctate densities within the soft tissues of the distal which may be external to the patient. Recommend clinical correlation. Mild soft tissue edema over the dorsum of the foot. ATED BY: BRITTANY GARCIA DO DICTATED DATE/TIME: 09/30/24 3135 Condition at Discharge: Good Final Diagnosis/Problems List Right foot purulent Cellulitis Schizophrenia polysubstance abuse Discharge Disposition: Home Discharge Instruct/Medications Diet: Regular Activity: No Restrictions, As Tolerated Follow Up/Referral: 7 days at the discharge clinic Medications: Home with bactrim Discharge Statement: "Patient was advised to return to the ER or call 911 if any headaches, dizziness, shortness of breath, chest pain, abdominal pain, bleeding, fevers, or worsening of medical condition. Patient was counseled about treatment plan, medications, possible side effects, patientverbalized understanding. All questions were answered to the best of my ability. This discharge took greater then 30 minutes in planning, reviewing documentation, counseling the patient, and discussing with other team members." ASSESSMENT ASSESSMENT Assessment Cellulitis right foot schizophrenia polysubstance abuse Date of Service: Oct 02, 2024 Billing Provider: DARYL MONTES MD Common Visit Codes: 85884-RLD/OBS DISCH DAY >30min MYRANDA ROBLES RESIDENT Oct 02, 2024 23:08 DARYL MONTES MD Oct 04, 2024 15:54
== END 2024-10-02 18:21 | disposition home or self-care (01) | DRG 383 ==
LOC: ER 15:32 → OVERFLOW 21:16
PROVIDERS: ADMIT Student in an Organized Health Care Education/Training Program; ATTEND Student in an Organized Health Care Education/Training Program
DX: L03.115 Cellulitis of right lower limb (principal); F17.210 Nicotine dependence, cigarettes, uncomplicated; F20.9 Schizophrenia, unspecified; F32.A Depression, unspecified; F19.10 Other psychoactive substance abuse, uncomplicated; Z88.1 Allergy status to other antibiotic agents; Z59.00 Homelessness unspecified; Z56.0 Unemployment, unspecified
CPT/HCPCS: 36415; 73630; 73700; 80048; 80053; 80202; 82565; 83605; 83880; 84484; 85025; 85652; 86141; 93971; G0378; J3490

== ENCOUNTER 2025-01-31 11:02 | Emergency (ER) | payer MEDICAID ==
[~2025-01-31] VITALS: Ht 180.3 cm; Wt 66.0 kg
[~2025-01-31 11:02] MED LIST: BACDST PO; ESCI1TAB36 PO; QUET100T47 PO
--- NOTE | 2025-01-31 11:59 | ED.PDOC ---
Psychiatric HPI Comments 29-year-old male with a history of schizophrenia and homelessness presents with a chief complaint of suicidal ideation. Patient states that he is feeling suicidal and is having auditory hallucinations. Patient denies having a plan at this time. Patient mentions that he was prescribed Zyprexa x 2 year ago and Abilify, but states that he ran out and has not refilled it. Patient is only requesting to have Zyprexa, does not want Abilify. PMHx: Schizophrenia PSHx: None SHx: Alcohol Use, methamphetamine abuse HPI: Poor Historian. REVIEW OF SYSTEMS: CONSTITUTIONAL: Denies acute: fever, diaphoresis, chills, generalized weakness. HEAD: Denies acute: headache, photophobia Eyes: Denies acute: Double vision, vision loss, eye pain, eye discharge. EARS: Denies acute: tinnitus, hearing loss, ear discharge, ear pain, THROAT: Denies acute: sore throat, swelling, difficulty swallowing , pain with swallowing, change in voice. NECK: Denies acute: neck pain, neck swelling, stiff neck. HEART: Denies acute : chest pain, palpitations, LUNGS: Denies acute: SOB, wheezing, cough, hemoptysis ABDOMEN: Denies acute: abdominal pain, Nausea, Vomiting, diarrhea, melena , hematemesis, hematochezia SKIN: Denies acute: rash, redness, lesions, itchiness. EXTREMITIES: Denies acute: calf pain, numbness, tingling, weakness, denies pain in extremity. Denies acute: Low back pain. Neuro: Denies acute: focal neurological deficit, motor or sensory focal neurological deficit, tremors, seizure like activity, confusion, dizziness, change in mental status, loss of bowel or bladder function, cauda equina like symptoms. : Denies acute: dysuria, hematuria, flank pain, increase in urinary frequency. PSYCH: Denies acute: homicidal ideation. PHYSICAL EXAM: General: no acute distress, awake and alert. Head: normocephalic, atraumatic. Neck: supple, trachea is midline, no swelling. Throat: Normal phonation. Eyes:, no erythema, no purulent discharge, no proptosis, no icterus. Heart: regular rate, regular rhythm, no significant murmur appreciated. Lungs: no apparent respiratory distress, Able to speak in full sentences. No wheezing, no rhonchi, no crackles. No stridors Clear to auscultation bilaterally. Abdomen: non tender to palpation, non distended, soft, no guarding, no rebound, + bowel sounds. Neuro: Awake, Alert, oriented to name, self, situation, follows commands GCS=15. Speech is normal. Skin: no petechia, no purpura, no cyanosis, non-pale, not jaundice. Lower extremities: --no - Pitting edema no deformity, no focal swelling, no calf TTP. Makes eye contact. moves all four extremities. Face: no apparent facial droop. Ambulating in the ED independently. ED COURSE: At this time 5:32 p.m. , we noted that the socially responsible investment adviser stated that the patient requested to be placed on a voluntary hold. We tried to reach the social service people but they are not to be found. We will keep the patient in the ED until we find placement for the patient for a voluntary hold. Chief Complaint: Suicidal Time Seen by MD: 11:20 Reviewed Notes: Nurses Notes, Medications, Allergies Information Source: Patient Mode of Arrival: Ambulatory Past Medical History PAST MEDICAL HISTORY: Schizophrenia Surgical History: Denies all surgeries Family History Family History: Reviewed,noncontributory to illness Social History Smoker: Cigarettes Alcohol: Occasionally Drugs: Denies Drug Use Lives In: Other Was a procedure done? Was a procedure done?: No Psych Differential Dx Suicidal Differential Dx: Alcohol Abuse, Anxiety, Bipolar Disorder, Conversion Disorder, Depression, Homicidal, Laceration, Panic Disorder, Personality Disorder, Schizoprenia, Substance Abuse X-Ray, Labs, Meds, VS Vital Signs Date Time Temp Pulse Resp B/P (MAP) Pulse Ox O2 Delivery O2 Flow Rate FiO2 01/31/25 15:27 97.6 87 16 120/76 (91) 95 97.6 01/31/25 15:27 87 16 95 Room Air 01/31/25 11:57 97.1 100 16 115/71 (86) 98 97.1 01/31/25 11:44 Room Air* 0 21 Lab Test 01/31/25 12:40 01/31/25 11:56 Range/Units Urine Opiates Screen Neg NEGATIVE Urine Fentanyl Screen Neg NEGATIVE Urine Barbiturates Screen Neg NEGATIVE Urine Phencyclidine Screen Neg NEGATIVE Urine Amphetamines Screen Neg NEGATIVE Urine Benzodiazepines Screen Neg NEGATIVE Urine Cocaine Screen Neg NEGATIVE Urine Cannabinoids Screen Neg NEGATIVE White Blood Count 5.7 4.4-10.8 10^3/uL Red Blood Count 5.29 4.5-5.90 10^6/uL Hemoglobin 15.4 13.5-17.5 g/dL Hematocrit 45.4 41.0-53.0 % Mean Corpuscular Volume 85.8 80.0-100.0 fL Mean Corpuscular Hemoglobin 29.0 28.0-32.0 pg Mean Corpuscular Hemoglobin Concent 33.8 32.0-36.0 g/dL Red Cell Distribution Width 14.6 H 11.8-14.3 % Platelet Count 288 140-450 10^3/uL Mean Platelet Volume 7.0 6.9-10.8 fL Neutrophils (%) (Auto) 59.4 37.0-80.0 % Lymphocytes (%) (Auto) 30.4 10.0-50.0 % Monocytes (%) (Auto) 3.8 0.0-12.0 % Eosinophils (%) (Auto) 5.0 0.0-7.0 % Basophils (%) (Auto) 1.4 0.0-2.0 % Neutrophils # (Auto) 3.4 1.6-8.6 10 ^3/uL Lymphocytes # (Auto) 1.7 0.4-5.4 10 ^3/uL Monocytes # (Auto) 0.2 0-1.3 10 ^3/uL Eosinophils # (Auto) 0.3 0-0.8 10 ^3/uL Basophils # (Auto) 0.1 0-0.2 10 ^3/uL Nucleated Red Blood Cells 0.1 % Sodium Level 138 136-145 mmol/L Potassium Level 3.8 3.5-5.1 mmol/L Chloride Level 107 98-107 mmol/L Carbon Dioxide Level 24 20-31 mmol/L Anion Gap 7 5-15 Blood Urea Nitrogen 13 9-23 mg/dL Creatinine 0.82 0.700-1.30 mg/dL Glomerular Filtration Rate Calc 121 >90 mL/min BUN/Creatinine Ratio 15.9 10.0-20.0 Serum Glucose 121 H 74-106 mg/dL Calcium Level 9.7 8.7-10.4 mg/dL Total Bilirubin 0.9 0.2-1.0 mg/dL Aspartate Amino Transferase (AST) 19 13-40 U/L Alanine Aminotransferase (ALT) 12 7-40 U/L Alkaline Phosphatase 97 46-116 U/L Total Protein 7.6 5.7-8.2 g/dL Albumin 4.7 3.2-4.8 g/dL Plasma/Serum Blood Alcohol < 3.0 <10 mg/dL Current Medications Medications (Trade) Dose Ordered Sig/Arti Route Start Time Stop Time Status Last Admin Olanzapine (ZyPREXA Tablet) 10 mg STAT ONCE PO 01/31/25 15:00 01/31/25 15:01 DC 01/31/25 15:09 Time of 1ST Reevaluation: 11:50 Reevaluation 1ST: Unchanged Time of 2ND Reevaluation: 12:31 (Patient has been medically cleared. Awaiting both social service and tele psych evaluation.) Time of 3RD Reevaluation: 14:48 (The psychologist evaluated the patient Dr. Turpin. He stated that the patient has history of methamphetamine abuse most recently 10 days ago. He recommends discharging the patient home with Zyprexa 10 mg b.i.d.. ) Patient Education/Counseling: Diagnosis, Treatment Family Education/Counseling: No Family Present Assigned to Dr. Collins. Patient has been medically cleared. Patient is awaiting placement in a psychiatric facility for further evaluation and treatment. Patient has been cooperative and calm during his ED course this far. Comments Patient presented with the above HPI.--psych----workup was initiated. patient was found with the above mentioned diagnosis. the following medications were ordered: please refer to order lists of meds and tests obtained by myself Dr. Titus. Patient ED course and VS have been stabilized. Patient has been reassessed in the ED and remained in a stable condition. Pertinent incidental findings were discussed with the patient and/or family. Patient/family voices understanding and is agreeable with plan. Patient has been observed in the ED adequate length of time to insure improvement/stability. Escalation of care considered: Consideration of escalation to observation or admission Patient was placed on the ED observation awaiting placement in a psychiatric facility for further evaluation. Voluntary hold per patient request. Social service and tele psych were both consulted. All the reports of any imaging studies that were ordered by myself were reviewed by myself. Departure 1 Departure Time of Disposition: 12:30 Impression: Primary Impression: Suicidal ideation Additional Impressions: History of schizophrenia Patient needs psychiatric hold for evaluation Noncompliance with medications History of methamphetamine abuse Disposition: 30 STILL A PATIENT Condition: Stable Additional Instructions: e-Prescriptions Olanzapine (Zyprexa) 10 Mg Tab 10 MG PO BID for 30 Days, #60 TAB Prov: JOSE TITUS DO 01/31/25 Discharged With: Self Critical Care Note Critical Care Time?: No I personally scribed for JOSE TITUS DO ([email or web address]) on 01/31/25 at 11:59. Electronically submitted by Jerad Nelson ([email or web address]). I personally scribed for JOSE TITUS DO ([email or web address]) on 01/31/25 at 12:34. Electronically submitted by Jerad Nelson ([email or web address]). JOSE TITUS DO Jan 31, 2025 11:59
[2025-01-31 12:18] LABS: Basophils # (auto) 0.1 10 ^3/uL (0-0.2); Basophils % (auto) 1.4 % (0.0-2.0); Eosinophils # (auto) 0.3 10 ^3/uL (0-0.8); Hematocrit 45.4 % (41.0-53.0); Hemoglobin 15.4 g/dL (13.5-17.5); Lymphocytes # (auto) 1.7 10 ^3/uL (0.4-5.4); Lymphocytes % (auto) 30.4 % (10.0-50.0); Mean Corpuscular Hgb Conc. 33.8 g/dL (32.0-36.0); Mean Corpuscular Volume 85.8 fL (80.0-100.0); Monocytes # (auto) 0.2 10 ^3/uL (0-1.3); Monocytes % (auto) 3.8 % (0.0-12.0); Neutrophils # (auto) 3.4 10 ^3/uL (1.6-8.6); Neutrophils % (auto) 59.4 % (37.0-80.0); Nucleated Red Blood Cells % 0.1 %; Platelet Count (auto) 288 10^3/uL (140-450); Red Blood Cells 5.29 10^6/uL (4.5-5.90); Red Cell Distribution Width 14.6 % (11.8-14.3); White Blood Cell 5.7 10^3/uL (4.4-10.8)
[2025-01-31 12:28] LABS: Alanine Aminotransferase 12 U/L (7-40); Albumin 4.7 g/dL (3.2-4.8); Alkaline Phosphatase 97 U/L (46-116); Anion Gap 7 (5-15); Aspartate Aminotransferase 19 U/L (13-40); BUN/Creatinine Ratio 15.9 (10.0-20.0); Bilirubin, Total 0.9 mg/dL (0.2-1.0); Blood Urea Nitrogen 13 mg/dL (9-23); Calcium 9.7 mg/dL (8.7-10.4); Carbon Dioxide 24 mmol/L (20-31); Chloride 107 mmol/L (98-107); Potassium 3.8 mmol/L (3.5-5.1); Sodium 138 mmol/L (136-145); Total Protein 7.6 g/dL (5.7-8.2)
[2025-01-31 12:29] LABS: Blood Alcohol < 3.0 mg/dL (<10); Glucose 121 mg/dL (74-106)
--- NOTE | 2025-01-31 13:19 | DVHINCON2 ---
Date of Service if different f: Jan 31, 2025 Time of Service: 12:53 Consultation ([facility]) Consulting Physician: MAMADOU MASON MD Labs Laboratory Tests Test 01/31/25 11:56 White Blood Count 5.7 10^3/uL (4.4-10.8) Red Blood Count 5.29 10^6/uL (4.5-5.90) Hemoglobin 15.4 g/dL (13.5-17.5) Hematocrit 45.4 % (41.0-53.0) Mean Corpuscular Volume 85.8 fL (80.0-100.0) Mean Corpuscular Hemoglobin 29.0 pg (28.0-32.0) Mean Corpuscular Hemoglobin Concent 33.8 g/dL (32.0-36.0) Red Cell Distribution Width 14.6 % (11.8-14.3) Platelet Count 288 10^3/uL (140-450) Mean Platelet Volume 7.0 fL (6.9-10.8) Neutrophils (%) (Auto) 59.4 % (37.0-80.0) Lymphocytes (%) (Auto) 30.4 % (10.0-50.0) Monocytes (%) (Auto) 3.8 % (0.0-12.0) Eosinophils (%) (Auto) 5.0 % (0.0-7.0) Basophils (%) (Auto) 1.4 % (0.0-2.0) Neutrophils # (Auto) 3.4 10 ^3/uL (1.6-8.6) Lymphocytes # (Auto) 1.7 10 ^3/uL (0.4-5.4) Monocytes # (Auto) 0.2 10 ^3/uL (0-1.3) Eosinophils # (Auto) 0.3 10 ^3/uL (0-0.8) Basophils # (Auto) 0.1 10 ^3/uL (0-0.2) Nucleated Red Blood Cells 0.1 % Sodium Level 138 mmol/L (136-145) Potassium Level 3.8 mmol/L (3.5-5.1) Chloride Level 107 mmol/L (98-107) Carbon Dioxide Level 24 mmol/L (20-31) Anion Gap 7 (5-15) Blood Urea Nitrogen 13 mg/dL (9-23) Creatinine 0.82 mg/dL (0.700-1.30) Glomerular Filtration Rate Calc 121 mL/min (>90) BUN/Creatinine Ratio 15.9 (10.0-20.0) Serum Glucose 121 mg/dL (74-106) Calcium Level 9.7 mg/dL (8.7-10.4) Total Bilirubin 0.9 mg/dL (0.2-1.0) Aspartate Amino Transf (AST/SGOT) 19 U/L (13-40) Alanine Aminotransferase (ALT/SGPT) 12 U/L (7-40) Alkaline Phosphatase 97 U/L (46-116) Total Protein 7.6 g/dL (5.7-8.2) Albumin 4.7 g/dL (3.2-4.8) Plasma/Serum Blood Alcohol < 3.0 mg/dL (<10) Appearance: Stated age Psychomotor activity: Calm Behavioral: Cooperative Eye contact: Appropriate Speech: WNL Affect: Appropriate Mood: Depressed Thought processes: Linear/Goal-directed Thought content: Hallucinations Suicidal ideations: Absent Homicidal ideations: Absent Orientation: Person, Place, Time, Situation Memory intact: Recent Intellect: Average Abstractability: WNL Concentration: Adequate Attention: Adequate Judgement: WNL Insight: Fair Vitals Vital Signs Date Time Temp Pulse Resp B/P (MAP) Pulse Ox O2 Delivery O2 Flow Rate FiO2 01/31/25 11:57 97.1 100 16 115/71 (86) 98 97.1 01/31/25 11:44 Room Air* 0 21 Treatment plan discussed: With staff Medication adjusted: Yes Labs ordered: No Psychotherapy provided: No Type: Voluntary History of Present Illness The patient was previously seen by the undersigned on two occasions under and . Reason for Consult : psychiatric evaluation for suicide attempt PER H&P: 29-year-old male presents with a chief complaint of suicidal ideation. Patient states that he is feeling suicidal and is having auditory hallucinations. Patient denies having a plan at this time. Patient mentions that he was prescribed Zyprexa x 2 year ago and Abilify, but states that he ran out and has not refilled it. Patient is only requesting to have Zyprexa, does not want Abilify. Patient is diagnosed Schizophrenic. PSYCHIATRIST HPI: The patient was seen and evaluated at [facility] via telepsychiatry platform. 29 yr old male reported "I'm hearing voices." He reported he last took his zyprexa one month ago. He is unsure what dose he is on, but would like to restart zyprexa as he felt it worked well to keep him feeling better and keep the voices under control. He noted he felt some suicidal ideation earlier in the morning, but reported he no longer feels like harming himself and would really just like to get back on his medications. He denied having homicidal ideation, and denied having visual hallucinations. Past Psychiatric History : Sees psychiatrist Dr Rafael Rodríguez in [place]. Diagnosed with schizophrenia for 6 years. Hospitalized "over a dozen times" last time was four days ago. Past Medical History : seizures in past Current medications: Zyprexa, Keppra 500mg BID Substance use: Denied alcohol use. Denied MJ use. Reported using meth in past. Last use was about 10 days ago. Uses about twice a month. Social History : Raised in [place], lives at [facility] long-term. Never , no children. Graduated [employer] , attended some college at [employer] and [employer]. Works in a warehouse and in restaurant. DIAGNOSIS: SCHIZOPHRENIA; METH USE DISORDER Formulation: This 29 yr old male appears to suffer from schizophrenia and has some auditory hallucinations which likely are due to him not taking his medication and possible frequent use of meth. He may benefit from being on zyprexa. Plan: 1. Safety. The patient is a low risk for self-harm and may be managed as an outpatient. 2. Legal-voluntary. 3. Medications: Start the following. Recommend giving a prescription for thirty days and two refills: Zyprexa 10mg qhs 4. Case discussed with ED Physician, Dr Huerta. 5. Please recontact psychiatry for further follow up or reevaluation. Assessment/Diagnosis/Plan Reviewed: Labs, Medications, Previous Orders MAMADOU MASON MD Jan 31, 2025 13:08
[2025-01-31 14:24] LABS: Amphetamine Screen, Urine Neg (NEGATIVE)
[2025-01-31 14:27] LABS: Barbiturate Scree,Urine Neg (NEGATIVE); Benzodiazephine Screen, Urine Neg (NEGATIVE); Cannabinoid Screen, Urine Neg (NEGATIVE); Cocaine Screen, Urine Neg (NEGATIVE); Opiate Scree,Urine Neg (NEGATIVE); Phencyclidine Screen, Urine Neg (NEGATIVE)
[2025-01-31] MEDS ORDERED: OLAN10TA PO (14:48)
[2025-01-31] MEDS: OLANZapine 5 MG TAB PO ONE (15:09)
[2025-02-01 08:00] VITALS: PULSE 72; RESP 16; O2SAT 98
[2025-02-01 22:53] VITALS: RESP 14
[2025-02-03 00:20] VITALS: PULSE 70; RESP 18; O2SAT 97
[2025-02-03 07:59] VITALS: BP 123/76; TEMP 98.2
[2025-02-03 08:56] VITALS: PULSE 74; RESP 16; O2SAT 96
--- NOTE | 2025-02-03 11:25 | TELE.CONS ---
PSYCHIATRY REASSESSMENT Date: 02/03/25 1110 S: The patient was seen and evaluated at [facility] ED via telepsychiatry platform. 29 yr old male was seen by the undersigned (psychiatrist Cosme Turpin) on 01/31 and diagnosed with schizophrenia and meth use disorder. He was originally going to be discharged but told social work that he was feeling pressure from his auditory hallucinations and didn't feel comfortable leaving, so he was recommended for voluntary transfer to [facility] and he was started on Zyprexa 10mg qhs. However, over the past three days, no beds were available so he didn't transfer to [facility]. Today he reported that his voices are much improved and stated he deals with it with deep breathing. He has been taking Zyprexa 10mg qhs and feels that has reduced his voices significantly to the point that they are very manageable for him. [facility]. He denied having any suicidal or homicidal ideation, plan or intent and denied having visual hallucinations. He is interested in continuing on zyprexa. MSE: alert and oriented speech-regular rate, rhythm and volume Mood-"okay" Affect-euthymic, congruent. Tht process-linear and goal directed Tht Content-Denied having suicidal or homicidal ideation. Denied visual hallucinations. Intermittent auditory hallucinations Insight-fair Judgment-fair Impulse control-fair. Diagnosis: Schizophrenia; Meth use disorder Assessment: This 29 yr old male appears to suffer from schizophrenia and meth use disorder. He may benefit from continuing on zyprexa and refraining from meth use. He does not meet criteria for inpatient hospitalization. Plan: 1. Safety. The patient is a low risk for self harm and may be managed as an outpatient. 2. Legal-voluntary. Follow up with outpatient mental health for medication management and therapy 3. Medications-Recommend giving thirty day prescription and two refills for: Olanzapine 10mg qhs 4. Case discussed with ED physician. 5. Please contact psychiatry if further follow up or reevaluation is desired. Yes COSME TURPIN MD Feb 03, 2025 11:25
[2025-02-03] MEDS ORDERED: OLAN1TAB19 PO (11:43)
== END 2025-02-03 13:06 | disposition home or self-care (01) ==
LOC: ER 11:02
DX: R45.851 Suicidal ideations (principal); F15.10 Other stimulant abuse, uncomplicated; F20.9 Schizophrenia, unspecified
CPT/HCPCS: 36415; 80053; 80307; 80320; 85025

== ENCOUNTER 2025-03-13 10:26 | Emergency (ER) | payer MEDICAID ==
[~2025-03-13] VITALS: Ht 172.7 cm; Wt 72.8 kg
[~2025-03-13 10:26] MED LIST changes: +OLAN10TA PO; +OLAN1TAB19 PO
[2025-03-13 10:29] VITALS: BP 137/80; PULSE 90; RESP 14; TEMP 98.4; O2SAT 96
--- NOTE | 2025-03-13 10:39 | ED.PDOC ---
Psychiatric HPI Comments 29y M who presents to the ED via EMS for chief complaint of mental health. Per EMS, pt was found by bystander on street laying down and EMS was called. EMS arrived on scene and noted pt alert and oriented with noted stable vitals and Accu check of 125 and brought to the ED. Pt in the ED, states he smoked Meth yesterday and is chronic ETOH user. Pt otherwise in the ED, denies suicidal or homicidal ideations. Pt otherwise has noted history of schizophrenia and has been to [facility] in the past for similar complaints. Pt otherwise denies any other symptoms at this time. Chief Complaint: Mental Health Time Seen by MD: 10:35 Primary Care Provider: GASPER Beauchamp Notes: Marine Photographer Notes Information Source: Patient, Emergency Med Personnel Mode of Arrival: EMS Severity: Able to Care for Self Severity of Pain: Moderate Severity of Mental Status: Moderate Severity of Symptoms: Moderate Timing: Hours Duration: Since onset Prehospital treatment: None Presents with: Bizarre Behavior Ingestion: Drug(s) Ingested (methamphetamines) Circumstance: Medical Clearance Current substance abuse: Amphetamines Stressors: Homeless History of: Schizophrenia Quality: None Associated signs and symptoms: Amphetamines Past Medical History PAST MEDICAL HISTORY: Schizophrenia Surgical History: Denies all surgeries Family History Family History: Reviewed,noncontributory to illness Social History Smoker: Cigarettes Alcohol: Occasionally Drugs: Methamphetamine Lives In: Other Constitutional: denies: chills, diaphoresis, fatigue, fever, malaise, sweats, weakness, others EENTM: denies: blurred vision, double vision, ear bleeding, ear discharge, ear drainage, ear pain, ear ringing, eye pain, eye redness, hearing loss, mouth pain, mouth swelling, nasal discharge, nose bleeding, nose congestion, nose pain, photophobia, tearing, throat pain, throat swelling, voice changes, others Respiratory: denies: cough, hemoptysis, orthopnea, SOB at rest, shortness of breath, SOB with excertion, stridor, wheezing, others Cardiovascular: denies: chest pain, dizzy spells, diaphoresis, Dyspnea on exertion, edema, irregular heart beat, left arm pain, lightheadedness, palpit ations, PND, syncope, others Gastrointestinal: denies: abdomen distended, abdominal pain, blood streaked b owels, constipated, diarrhea, dysphagia, difficulty swallowing, hematemesis, melena, nausea, poor appetite, poor fluid intake, rectal bleeding, rectal pain, vomiting, others Genitourinary: denies: burning, dysuria, flank pain, frequency, hematuria, incontinence, penile discharge, penile sore, pain, testicle pain, testicle swelling, urgency, others Neurological: denies: dizziness, fainting, headache, left sided numbness, left sided weakness, numbness, paresthesia, pre-existing deficit, right sided numbness, right sided weakness, seizure, speech problems, tingling, tremors, weakness, others Musculoskeletal: denies: back pain, gout, joint pain, joint swelling, muscle pain, muscle stiffness, neck pain, others Integumetry: denies: bruises, change in color, change in hair/nails, dryness, laceration, lesions, lumps, rash, wounds, others Allergic/Immunocompromised: denies: Difficulty Healing, Frequent Infections, Hives, Itching, others Hematologic/Lymphatic: denies: anemia, blood clots, easy bleeding, easy bruisi ng, swollen glands, others Endocrine: denies: excessive hunger, excessive sweating, excessive thirst, exce ssive urination, flushing, intolerance to cold, intolerance to heat, unexplained weight gain, unexplained weight loss, others Psychiatric: reports: schizophrenia; denies: anxiety, bipolar disorder, depression, hopeless, panic disorder, sleepless, suicidal, others All Other Systems: Reviewed and Negative Physical Exam General Appearance: No Apparent Distress, Other (Seems to be responding to internal stimuli) HEENT: Normal ENT Inspection, Pharynx Normal, TMs Normal Neck: Full Range of Motion, Non-Tender, Normal, Normal Inspection Respiratory: Chest Non-Tender, Lungs Clear, No Accessory Muscle Use, No Respiratory Distress, Normal Breath Sounds Cardiovascular: No Edema, No JVD, No Murmur, No Gallop, Normal Peripheral Pulses, Regular Rate/Rhythm Breast Exam: Deferred Gastrointestinal: No Organomegaly, Non Tender, No Pulsatile Mass, Normal Bowel Sounds, Soft Genitalia: Deferred Pelvic: Deferred Rectal: Deferred Extremities: No calf tenderness, Normal capillary refill, Normal inspection, Normal range of motion, Non-tender, No pedal edema Musculoskeletal : Apperance: Normal Neurologic: Alert, franchise sales representative II-XII nml as Tested, No Motor Deficits, No Sensory Deficits, Other (Flat affect) Cerebellar Function: Normal Reflexes: Normal Skin: Dry, Normal Color, Warm Lymphatic: No Adenopathy Was a procedure done? Was a procedure done?: No Psych Differential Dx Psych. Differential Dx: Schizoprenia OD Differential Dx: Intentional, Substance Abuse Suicidal Differential Dx: Alcohol Abuse Intoxication Differential Dx: Alcohol Withdraw Syndrome, Dehydration, Drug- Induced Psychosis, Electrolyte Imbalance, Substance Abuse Disorder X-Ray, Labs, Meds, VS Vital Signs Date Time Temp Pulse Resp B/P (MAP) Pulse Ox O2 Delivery O2 Flow Rate FiO2 03/13/25 10:29 98.4 90 14 137/80 (99) 96 98.4 Lab Test 03/13/25 10:40 Range/Units White Blood Count 6.6 4.4-10.8 10^3/uL Red Blood Count 4.81 4.5-5.90 10^6/uL Hemoglobin 14.1 13.5-17.5 g/dL Hematocrit 41.1 41.0-53.0 % Mean Corpuscular Volume 85.3 80.0-100.0 fL Mean Corpuscular Hemoglobin 29.4 28.0-32.0 pg Mean Corpuscular Hemoglobin Concent 34.4 32.0-36.0 g/dL Red Cell Distribution Width 14.2 11.8-14.3 % Platelet Count 325 140-450 10^3/uL Mean Platelet Volume 6.8 L 6.9-10.8 fL Neutrophils (%) (Auto) 60.5 37.0-80.0 % Lymphocytes (%) (Auto) 29.1 10.0-50.0 % Monocytes (%) (Auto) 7.4 0.0-12.0 % Eosinophils (%) (Auto) 1.5 0.0-7.0 % Basophils (%) (Auto) 1.5 0.0-2.0 % Neutrophils # (Auto) 4.0 1.6-8.6 10 ^3/uL Lymphocytes # (Auto) 1.9 0.4-5.4 10 ^3/uL Monocytes # (Auto) 0.5 0-1.3 10 ^3/uL Eosinophils # (Auto) 0.1 0-0.8 10 ^3/uL Basophils # (Auto) 0.1 0-0.2 10 ^3/uL Nucleated Red Blood Cells 0.1 % Sodium Level 135 L 136-145 mmol/L Potassium Level 4.1 3.5-5.1 mmol/L Chloride Level 103 98-107 mmol/L Carbon Dioxide Level 23 20-31 mmol/L Anion Gap 9 5-15 Blood Urea Nitrogen 23 9-23 mg/dL Creatinine 1.12 0.700-1.30 mg/dL Glomerular Filtration Rate Calc 91 >90 mL/min BUN/Creatinine Ratio 20.5 H 10.0-20.0 Serum Glucose 108 H 74-106 mg/dL Calcium Level 10.6 H 8.7-10.4 mg/dL Creatine Kinase MB Pending Plasma/Serum Blood Alcohol < 3.0 <10 mg/dL Once the patient arrived we did do a CBC which is within normal limits The chemistry panel is within normal limits The alcohol level is negative The patient was now eloped from the department Patient did not express any suicidal or homicidal ideation Time of 1ST Reevaluation: 11:05 Reevaluation 1ST: Unchanged Patient Education/Counseling: Diagnosis, Treatment, Prognosis Family Education/Counseling: No Family Present Additional Information -Reviewed patient's previous visit(s): - The following tests were ordered, and results were reviewed by me: cbc, ua, bmp, blood alcohol, drug screen, ckmb - Additional information was gathered from interviewing the following independent Historian: ems - I reviewed and agreed with the following test results read by other provider: none - I discussed treatments and results with medical personnel and: patient Comprehensive systems review obtained and negative except for what is stated in the HPI. Departure 1 Departure Time of Disposition: 11:22 Impression: Primary Impression: History of methamphetamine abuse Disposition: 07 LEFT AWOL/ELOPED Condition: Fair Critical Care Note Critical Care Time?: No Stability Stability form required: No Heart Score Heart Score: Heart Score Response (Comments) Value History N/A 0 EKG N/A 0 Age N/A 0 Risk Factors N/A 0 Troponin N/A 0 Total 0 I personally scribed for BERNABE MTZ MD ([email or web address]) on 03/13/25 at 10:39. Electronically submitted by Liu Solano ([email or web address]). BERNABE MTZ MD March 13, 2025 10:39
[2025-03-13 10:50] LABS: Basophils # (auto) 0.1 10 ^3/uL (0-0.2); Basophils % (auto) 1.5 % (0.0-2.0); Eosinophils # (auto) 0.1 10 ^3/uL (0-0.8); Eosinophils % (auto) 1.5 % (0.0-7.0); Hematocrit 41.1 % (41.0-53.0); Hemoglobin 14.1 g/dL (13.5-17.5); Lymphocytes # (auto) 1.9 10 ^3/uL (0.4-5.4); Lymphocytes % (auto) 29.1 % (10.0-50.0); Mean Corpuscular Hemoglobin 29.4 pg (28.0-32.0); Mean Corpuscular Hgb Conc. 34.4 g/dL (32.0-36.0); Mean Corpuscular Volume 85.3 fL (80.0-100.0); Monocytes # (auto) 0.5 10 ^3/uL (0-1.3); Monocytes % (auto) 7.4 % (0.0-12.0); Neutrophils % (auto) 60.5 % (37.0-80.0); Nucleated Red Blood Cells % 0.1 %; Platelet Count (auto) 325 10^3/uL (140-450); Red Blood Cells 4.81 10^6/uL (4.5-5.90); Red Cell Distribution Width 14.2 % (11.8-14.3); White Blood Cell 6.6 10^3/uL (4.4-10.8)
[2025-03-13] MEDS: SODIUM CHLORIDE 0.9% 1,000 ML IV ONE (10:55)
[2025-03-13 10:59] LABS: Chloride 103 mmol/L (98-107); Potassium 4.1 mmol/L (3.5-5.1)
[2025-03-13 11:00] LABS: Anion Gap 9 (5-15); Carbon Dioxide 23 mmol/L (20-31)
[2025-03-13 11:03] LABS: Calcium 10.6 mg/dL (8.7-10.4); Sodium 135 mmol/L (136-145)
[2025-03-13 11:05] LABS: BUN/Creatinine Ratio 20.5 (10.0-20.0)
[2025-03-13 11:08] LABS: Blood Urea Nitrogen 23 mg/dL (9-23); Glucose 108 mg/dL (74-106)
[2025-03-13 11:09] LABS: Blood Alcohol < 3.0 mg/dL (<10)
== END 2025-03-13 10:56 | disposition left against medical advice (07) ==
LOC: ER 10:26 → EDBD 10:26 → ER 10:56
DX: F15.10 Other stimulant abuse, uncomplicated (principal); F17.210 Nicotine dependence, cigarettes, uncomplicated; F20.9 Schizophrenia, unspecified; Z59.00 Homelessness unspecified
CPT/HCPCS: 36415; 80048; 80320; 82553; 85025

== ENCOUNTER 2025-03-14 02:08 | Emergency (ER) | payer MEDICAID ==
[~2025-03-14] VITALS: Ht 180.3 cm; Wt 66.6 kg
[2025-03-14 04:05] LABS: Basophils # (auto) 0.1 10 ^3/uL (0-0.2); Basophils % (auto) 1.4 % (0.0-2.0); Eosinophils # (auto) 0.2 10 ^3/uL (0-0.8); Eosinophils % (auto) 4.7 % (0.0-7.0); Hematocrit 42.4 % (41.0-53.0); Hemoglobin 14.7 g/dL (13.5-17.5); Lymphocytes % (auto) 39.3 % (10.0-50.0); Mean Corpuscular Hemoglobin 29.8 pg (28.0-32.0); Mean Corpuscular Hgb Conc. 34.7 g/dL (32.0-36.0); Mean Corpuscular Volume 85.9 fL (80.0-100.0); Monocytes # (auto) 0.4 10 ^3/uL (0-1.3); Monocytes % (auto) 7.2 % (0.0-12.0); Neutrophils # (auto) 2.5 10 ^3/uL (1.6-8.6); Neutrophils % (auto) 47.4 % (37.0-80.0); Nucleated Red Blood Cells % 0.3 %; Platelet Count (auto) 326 10^3/uL (140-450); Red Blood Cells 4.94 10^6/uL (4.5-5.90); Red Cell Distribution Width 14.1 % (11.8-14.3); White Blood Cell 5.2 10^3/uL (4.4-10.8)
[2025-03-14 04:17] LABS: Alanine Aminotransferase 19 U/L (7-40); Alkaline Phosphatase 106 U/L (46-116); Anion Gap 7 (5-15); Aspartate Aminotransferase 26 U/L (13-40); BUN/Creatinine Ratio 23.9 (10.0-20.0); Blood Urea Nitrogen 22 mg/dL (9-23); Carbon Dioxide 26 mmol/L (20-31); Chloride 104 mmol/L (98-107); Glucose 93 mg/dL (74-106); Potassium 4.5 mmol/L (3.5-5.1); Sodium 137 mmol/L (136-145)
[2025-03-14 04:18] LABS: Albumin 5.1 g/dL (3.2-4.8); Blood Alcohol < 3.0 mg/dL (<10); Calcium 10.6 mg/dL (8.7-10.4); Total Protein 8.5 g/dL (5.7-8.2)
[2025-03-14 04:33] LABS: Bilirubin, Total 1.2 mg/dL (0.2-1.0)
--- NOTE | 2025-03-14 06:42 | ED.PDOC ---
Psychiatric HPI Comments 29 y/o M, RAJIV, presents to the ED for CC of mental health. EMS reports, patient is currently homeless and has been unable to find adequate recourses for his mental health. Patient relays, that he is currently having a hard time finding resources and is struggling with his mental health as a result. Patient relays, having suicidal ideation and auditory hallucinations commanding him to hurt himself. Patient endorses, drinking ETOH and using illicit street drugs x2days ago. Patient denies homicidal ideation or visual hallucinations. No other symptoms or modifying factors present at this time. Chief Complaint: Mental Health Time Seen by MD: 06:10 Primary Care Provider: david Reviewed Notes: Nurses Notes, Growth Media Mixer Mushroom Notes, Medications, Allergies Information Source: Patient Mode of Arrival: Ambulatory Severity: Unable to Care for Self Severity of Pain: None Severity of Mental Status: Moderate Severity of Symptoms: Moderate Timing: Hours Duration: Since onset Prehospital treatment: None Presents with: Suicidal Ideation Ingestion: None Circumstance: None Current substance abuse: ETOH, Amphetamines Stressors: None History of: Schizophrenia Quality: None Associated signs and symptoms: Hopeless, ETOH, Amphetamines Past Medical History PAST MEDICAL HISTORY: Schizophrenia Surgical History: Denies all surgeries Family History Family History: Reviewed,noncontributory to illness Social History Smoker: Cigarettes Alcohol: Occasionally Drugs: Methamphetamine Lives In: Other Constitutional: denies: chills, diaphoresis, fatigue, fever, malaise, sweats, weakness, others EENTM: denies: blurred vision, double vision, ear bleeding, ear discharge, ear drainage, ear pain, ear ringing, eye pain, eye redness, hearing loss, mouth pain, mouth swelling, nasal discharge, nose bleeding, nose congestion, nose pain, photophobia, tearing, throat pain, throat swelling, voice changes, others Respiratory: denies: cough, hemoptysis, orthopnea, SOB at rest, shortness of breath, SOB with excertion, stridor, wheezing, others Cardiovascular: denies: chest pain, dizzy spells, diaphoresis, Dyspnea on exertion, edema, irregular heart beat, left arm pain, lightheadedness, palpitations, PND, syncope, others Gastrointestinal: denies: abdomen distended, abdominal pain, blood streaked bowels, constipated, diarrhea, dysphagia, difficulty swallowing, hematemesis, melena, nausea, poor appetite, poor fluid intake, rectal bleeding, rectal pain, vomiting, others Genitourinary: denies: burning, dysuria, flank pain, frequency, hematuria, incontinence, penile discharge, penile sore, pain, testicle pain, testicle swelling, urgency, others Neurological: denies: dizziness, fainting, headache, left sided numbness, left sided weakness, numbness, paresthesia, pre-existing deficit, right sided numbness, right sided weakness, seizure, speech problems, tingling, tremors, weakness, others Musculoskeletal: denies: back pain, gout, joint pain, joint swelling, muscle pa in, muscle stiffness, neck pain, others Integumetry: denies: bruises, change in color, change in hair/nails, dryness, laceration, lesions, lumps, rash, wounds, others Allergic/Immunocompromised: denies: Difficulty Healing, Frequent Infections, Hives, Itching, others Hematologic/Lymphatic: denies: anemia, blood clots, easy bleeding, easy bruising, swollen glands, others Endocrine: denies: excessive hunger, excessive sweating, excessive thirst, excessive urination, flushing, intolerance to cold, intolerance to heat, unexplained weight gain, unexplained weight loss, others Psychiatric: reports: suicidal; denies: anxiety, bipolar disorder, depression, hopeless, panic disorder, schizophrenia, sleepless, others All Other Systems: Reviewed and Negative Physical Exam General Appearance: Moderate Distress HEENT: Normal ENT Inspection, Pharynx Normal, TMs Normal Neck: Full Range of Motion, Non-Tender, Normal, Normal Inspection Respiratory: Chest Non-Tender, Lungs Clear, No Accessory Muscle Use, No Respiratory Distress, Normal Breath Sounds Cardiovascular: No Edema, No JVD, No Murmur, No Gallop, Normal Peripheral Pulses, Regular Rate/Rhythm Breast Exam: Deferred Gastrointestinal: No Organomegaly, Non Tender, No Pulsatile Mass, Normal Bowel Sounds, Soft Genitalia: Deferred Pelvic: Deferred Rectal: Deferred Extremities: No calf tenderness, Normal capillary refill, Normal inspection, Normal range of motion, Non-tender, No pedal edema Musculoskeletal : Apperance: Normal Neurologic: Alert, fry cook II-XII nml as Tested, No Motor Deficits, Normal Affect, Normal Mood, No Sensory Deficits Cerebellar Function: Normal Reflexes: Normal Skin: Dry, Normal Color, Warm Peripheral Pulses: 3+ Radial (R), 3+ Radial (L) Lymphatic: No Adenopathy Was a procedure done? Was a procedure done?: No Psych Differential Dx Psych. Differential Dx: Hopeless, Schizoprenia, Suicidal X-Ray, Labs, Meds, VS Vital Signs Date Time Temp Pulse Resp B/P (MAP) Pulse Ox O2 Delivery O2 Flow Rate FiO2 03/14/25 03:00 98.3 60 20 109/67 (81) 100 98.3 Lab Test 03/14/25 07:51 03/14/25 03:35 Range/Units Urine Color Yellow Yellow Urine Clarity Turbid H Clear Urine pH 5.5 5.0-9.0 Urine Specific Jarrell 1.035 1.001-1.035 Urine Protein Trace H Negative Urine Ketones Trace Negative Urine Blood 1+ H Negative /uL Urine Nitrite Negative Negative Urine Bilirubin Negative Negative Urine Urobilinogen Normal Negative mg/dL Urine Leukocyte Esterase 1+ Negative /uL Urine RBC 9 0 - 3 /hpf Urine Microscopic WBC 9 H 0-3 /HPF Urine Squamous Epithelial Cells Few <5 /hpf Urine Bacteria None seen None Seen /hpf Urine Mucus Few None Seen Urine Glucose Normal Normal mg/dL Urine Opiates Screen Neg NEGATIVE Urine Fentanyl Screen Neg NEGATIVE Urine Barbiturates Screen Neg NEGATIVE Urine Phencyclidine Screen Neg NEGATIVE Urine Amphetamines Screen Pos NEGATIVE Urine Benzodiazepines Screen Neg NEGATIVE Urine Cocaine Screen Neg NEGATIVE Urine Cannabinoids Screen Neg NEGATIVE White Blood Count 5.2 4.4-10.8 10^3/uL Red Blood Count 4.94 4.5-5.90 10^6/uL Hemoglobin 14.7 13.5-17.5 g/dL Hematocrit 42.4 41.0-53.0 % Mean Corpuscular Volume 85.9 80.0-100.0 fL Mean Corpuscular Hemoglobin 29.8 28.0-32.0 pg Mean Corpuscular Hemoglobin Concent 34.7 32.0-36.0 g/dL Red Cell Distribution Width 14.1 11.8-14.3 % Platelet Count 326 140-450 10^3/uL Mean Platelet Volume 6.8 L 6.9-10.8 fL Neutrophils (%) (Auto) 47.4 37.0-80.0 % Lymphocytes (%) (Auto) 39.3 10.0-50.0 % Monocytes (%) (Auto) 7.2 0.0-12.0 % Eosinophils (%) (Auto) 4.7 0.0-7.0 % Basophils (%) (Auto) 1.4 0.0-2.0 % Neutrophils # (Auto) 2.5 1.6-8.6 10 ^3/uL Lymphocytes # (Auto) 2.0 0.4-5.4 10 ^3/uL Monocytes # (Auto) 0.4 0-1.3 10 ^3/uL Eosinophils # (Auto) 0.2 0-0.8 10 ^3/uL Basophils # (Auto) 0.1 0-0.2 10 ^3/uL Nucleated Red Blood Cells 0.3 % Sodium Level 137 136-145 mmol/L Potassium Level 4.5 3.5-5.1 mmol/L Chloride Level 104 98-107 mmol/L Carbon Dioxide Level 26 20-31 mmol/L Anion Gap 7 5-15 Blood Urea Nitrogen 22 9-23 mg/dL Creatinine 0.92 0.700-1.30 mg/dL Glomerular Filtration Rate Calc 115 >90 mL/min BUN/Creatinine Ratio 23.9 H 10.0-20.0 Serum Glucose 93 74-106 mg/dL Calcium Level 10.6 H 8.7-10.4 mg/dL Total Bilirubin 1.2 H 0.2-1.0 mg/dL Aspartate Amino Transferase (AST) 26 13-40 U/L Alanine Aminotransferase (ALT) 19 7-40 U/L Alkaline Phosphatase 106 46-116 U/L Total Protein 8.5 H 5.7-8.2 g/dL Albumin 5.1 H 3.2-4.8 g/dL Plasma/Serum Blood Alcohol < 3.0 <10 mg/dL Patient alert. History of psychiatric illness. Complaining of suicidal ideation. Vitals stable. Ambulating. Reviewed his previous visit. Medically cleared. Psychiatric evaluation. Time of 1ST Reevaluation: 06:40 Reevaluation 1ST: Unchanged Patient Education/Counseling: Diagnosis, Treatment Family Education/Counseling: No Family Present Departure 1 Departure Time of Disposition: 08:25 Impression: Primary Impression: Suicidal ideation Additional Impression: History of schizophrenia Disposition: 30 STILL A PATIENT Condition: Good Critical Care Note Critical Care Time?: No Stability Stability form required: No Heart Score Heart Score: Heart Score Response (Comments) Value History N/A 0 EKG N/A 0 Age N/A 0 Risk Factors N/A 0 Troponin N/A 0 Total 0 I personally scribed for JIE LEON MD ([email or web address]) on 03/14/25 at 06:42. Electronically submitted by Romy Patricia ([email or web address]). JIE LEON MD March 14, 2025 06:42
[2025-03-14 07:52] LABS: Urine Bacteria None Seen /hpf (None Seen)
[2025-03-14 08:00] VITALS: PULSE 71; RESP 16; O2SAT 98
[2025-03-14 08:11] LABS: Amphetamine Screen, Urine Pos (NEGATIVE); Barbiturate Scree,Urine Neg (NEGATIVE); Benzodiazephine Screen, Urine Neg (NEGATIVE); Cannabinoid Screen, Urine Neg (NEGATIVE); Cocaine Screen, Urine Neg (NEGATIVE); Opiate Scree,Urine Neg (NEGATIVE); Phencyclidine Screen, Urine Neg (NEGATIVE)
[2025-03-14 08:13] LABS: Urine Blood 1+ /uL (Negative); Urine Clarity Turbid (Clear); Urine Color Yellow (Yellow); Urine Mucus FEW (None Seen); Urine Protein, UAD TRACE (Negative); Urine Specific Gravity 1.035 (1.001-1.035); Urine Squamous Epithelial Cell FEW /hpf (<5); Urine Urobilinogen Normal (Negative); Urine WBC 9 /HPF (0-3); Urine pH 5.5 (5.0-9.0)
[2025-03-14 19:42] VITALS: PULSE 75; RESP 18; O2SAT 98
--- NOTE | 2025-03-14 23:17 | DVHINCON2 ---
Date of Service if different f: March 14, 2025 Time of Service: 22:55 Consult Consult Note PSYCHIATRY ED NEW CONSULT HPI: 29 yo M pt with PPH of psychosis and ETOH/meth dependency presents to ED BIBA for safety, psychiatric stabilization, and possible med initiation/optimization in setting of homelessness, med noncompliance, depression, AH, and passive SI. Psychiatry consulted for safety evaluation and recommendations in context of current presentation Per pt, reports over past several days experiencing some depressed mood, hopelessness/helplessness, CAH to hurt self and unspecified anxiety symptoms. Also intermittent SI that are fleeting with no plan/intent. Reports primary stress as unemployment, lack of meaningful relationships, inadequate housing, limited support system, etc. Denies HI/VH/paranoia/catatonic/perceptual disturbances/personality changes. No overt manic, psychotic, MDD, cognitive, dissociative phenomena, panic, OCD, PTSD, or somatic symptoms noted Pt currently does have active outpt MH services established at this time (psychiatry only). 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 Denies FH of psych hospitalizations, suicide attempts, or completed suicides No acute medical/chronic pain issues, hx of seizures/TBI, or recent head injuries, NKDA Some hx of SI/SIB via cutting but none recently, several prior psych hospitalizations/5150 holds in context of SI/homelessness. Denies history of violence, unprovoked aggression, or assaultive behaviors. Denies any legal problems Currently endorses passive SI. Denies HI/AVH. Does not have access to firearms MSE: General Appearance/Behavior: Alert and awake; appears stated age fair grooming and hygiene; calm and cooperative, fair eye contact, no PMA/PMR Speech: coherent, rrr Thought Process: linear, logical, appears goal-directed Thought Content: Abnormal Thoughts and Perceptions: denies dissociative symptoms Homicidality / Violent Thoughts: adamantly denies HI Suicidality: passive SI Hallucinations: denies AVTH Delusions: denies paranoia, persecutory, or grandiose delusions Obsessions /compulsions: None Judgment and Insight: fair/fair Mood & Affect: "little depressed" with mood-congruent, somewhat restricted but appropriate Orientation: oriented to person, place, time Attention/Concentration: appears intact Cognition: grossly intact Assessment: 29 yo M pt with PPH of psychosis and ETOH/meth dependency presents to ED BIBA for safety, psychiatric stabilization, and possible med initiation/optimization in setting of homelessness, med noncompliance, depression, AH, and passive SI. Pt is currently expressing some SI with moderate interference in daily functioning in setting of several recent acute life stressors (see hpi). Limited protective factors presently. Not on any psychotropics which maybe contributing to current symptoms. No outpt MH services at present. Hx of prior psych h ospitalizations. Pt agrees to talk with staff instead of acting on any suicidal feelings while in ED. Pt medically cleared in ED Hence, pt�s acute safety risk is low/moderate and is appropriate for inpatient psychiatric admission for safety, psychiatric stabilization, and possible medication initiation/optimization. Pt willing to transfer to inpt psych facility voluntarily. Consider 5150 hold for DTS ONLY if needed for transfer or if no voluntary beds are available Primary Diagnosis: Adjustment disorder with depressed mood and anxiety. Psychotic disorder unspecified. ETOH/meth use disorder, unspecified. R//o meth induced psychotic disorder Recommend VOL transfer to inpt psych facility for higher level of care per pts request 1:1 sitter is recommended Recommend continuation of current outpt med regimen - abilify 10 mg qhs - first dose now Defer any psychotropic med changes to accepting inpt psych facility Risks/benefits/alternative treatments discussed, informed consent provided by pt If patient later refuses voluntary hospitalization/ requests to be discharged from ED prior to transfer, please reconsult telepsych services to evaluate for 5150 hold Pt verbalized understanding and is receptive to above tx plan This case was discussed with ED nurse/provider and all parties in agreement with above tx plan Myles Machuca MD Plan discussed with: Patient MYLES MACHUCA MD March 14, 2025 23:17
[2025-03-15 19:45] VITALS: PULSE 79; RESP 19; O2SAT 99
[2025-03-16 08:25] VITALS: PULSE 63; RESP 16; O2SAT 98
[2025-03-17 08:55] VITALS: PULSE 65; RESP 18; O2SAT 99
[2025-03-18 13:17] VITALS: PULSE 63; RESP 18; O2SAT 99
[2025-03-19 02:30] VITALS: PULSE 71; RESP 16; O2SAT 99
[2025-03-19 15:04] VITALS: RESP 17; O2SAT 98
[2025-03-19 19:16] VITALS: BP 119/56; PULSE 66; RESP 16; TEMP 97.9; O2SAT 97
== END 2025-03-19 19:30 ==
LOC: ER 02:08
DX: R45.851 Suicidal ideations (principal); F20.9 Schizophrenia, unspecified; F17.210 Nicotine dependence, cigarettes, uncomplicated; Z79.899 Other long term (current) drug therapy
CPT/HCPCS: 36415; 80053; 80307; 80320; 81001; 85025

== ENCOUNTER 2025-06-13 13:38 | Emergency (ER) | payer MEDICAID ==
--- NOTE | 2025-06-13 13:46 | ED.PDOC ---
Altered Mental Status HPI Comments 30 year old male presents to the ED via EMS with a chief complaint of ALOC onset today. Per EMS, patient was found on the street in [place], not answering questions. Patient states he is being followed, refuses to answer questions. Was seen in this ED on 03/14/25 for suicidal ideation and hallucinations. PMHx schizophrenia. No other symptoms or modifying factors present at this time. Time Seen by MD: 13:40 Primary Care Provider: denies Reviewed Notes: Medications, Allergies Allergies: Coded Allergies: Cephalexin (Verified Allergy, Intermediate, 10/01/24) Home Meds Active Scripts Olanzapine (OLANZAPINE) 10 Mg Tab, 1 TAB PO QPM, #30 TAB Prov:JOSE TITUS DO 02/03/25 Olanzapine (Zyprexa) 10 Mg Tab, 10 MG PO BID for 30 Days, #60 TAB Prov:JOSE TITUS DO 01/31/25 Sulfamethoxazole W/Trimethopri (Bactrim Ds Tablet) 1 Tab Tb, 1 TAB PO BID for 7 Days, #14 TAB Prov:AVI HART RESIDENT 10/02/24 Reported Medications Quetiapine Fumerate (QUETIAPINE FUMARATE) 100 Mg Tab, PO 10/01/24 Escitalopram Oxalate (ESCITALOPRAM OXALATE) 10 Mg Tab, 1 TAB PO DAILY 10/01/24 Information Source: Emergency Med Personnel Mode of Arrival: EMS Severity: Moderate Timing: Hours Duration: Since onset Prehospital treatment: None Quality: Confusion Past Medical History PAST MEDICAL HISTORY: Schizophrenia Surgical History: Denies all surgeries Family History Family History: Reviewed,noncontributory to illness Social History Smoker: Cigarettes Alcohol: Occasionally Drugs: Methamphetamine Lives In: Other Unable to Obtain due to: Altered Mental Status Physical Exam General Appearance: Moderate Distress HEENT: Normal ENT Inspection, Pharynx Normal, TMs Normal Neck: Full Range of Motion, Non-Tender, Normal, Normal Inspection Respiratory: Chest Non-Tender, Lungs Clear, No Accessory Muscle Use, No Respiratory Distress, Normal Breath Sounds Cardiovascular: No Edema, No JVD, No Murmur, No Gallop, Normal Peripheral Pulses, Regular Rate/Rhythm Breast Exam: Deferred Gastrointestinal: No Organomegaly, Non Tender, No Pulsatile Mass, Normal Bowel Sounds, Soft Genitalia: Deferred Pelvic: Deferred Rectal: Deferred Extremities: No calf tenderness, Normal capillary refill, Normal inspection, Normal range of motion, Non-tender, No pedal edema Musculoskeletal : Apperance: Normal Neurologic: Alert, demo event specialist II-XII nml as Tested, No Motor Deficits, Normal Affect, Normal Mood, No Sensory Deficits Cerebellar Function: NOT DONE Reflexes: NOT DONE Skin: Dry, Normal Color, Warm Peripheral Pulses: 3+ Radial (R), 3+ Radial (L) Lymphatic: No Adenopathy Was a procedure done? Was a procedure done?: No Differential Diagnosis (ALOC) Differential Diagnosis: Dehydration, Hypoxemia X-Ray, Labs, Meds, VS Patient has some psychiatric issues. Not answering questions. Hearing voices. Vitals stable. No sign of any injuries. Has been here many times. Continue monitoring. Time of 1ST Reevaluation: 14:10 Reevaluation 1ST: Unchanged Patient Education/Counseling: Diagnosis, Treatment, Prognosis Family Education/Counseling: No Family Present Departure 1 Departure Time of Disposition: 13:50 Impression: Primary Impression: Psychosis Qualified Codes: F29 - Unspecified psychosis not due to a substance or known physiological condition Disposition: 30 STILL A PATIENT Condition: Good Critical Care Note Critical Care Time?: No Stability Stability form required: No Heart Score Heart Score: Heart Score Response (Comments) Value History N/A 0 EKG N/A 0 Age N/A 0 Risk Factors N/A 0 Troponin N/A 0 Total 0 I personally scribed for JIE LEON MD ([email or web address]) on 06/13/25 at 13:46. Electronically submitted by Pat Huitron ([email or web address]). JIE LEON MD Jun 13, 2025 13:46
== END 2025-06-14 13:47 | disposition left against medical advice (07) ==
LOC: EDBD 13:38 → EDUNIT# 13:38 → ER 13:45
DX: F29 Unspecified psychosis not due to a substance or known physiological condition (principal); F17.210 Nicotine dependence, cigarettes, uncomplicated; F10.90 Alcohol use, unspecified, uncomplicated; F19.90 Other psychoactive substance use, unspecified, uncomplicated; F20.9 Schizophrenia, unspecified; Z79.899 Other long term (current) drug therapy; Z88.1 Allergy status to other antibiotic agents; Y90.9 Presence of alcohol in blood, level not specified